=== PATIENT | male | born 1955 | race African-American/Black ===

== ENCOUNTER 2016-11-29 23:25 | Inpatient (IN) ==
[2016-11-29] MEDS ORDERED: PANTOPRAZOLE 40 MG VIAL IV ONE ×2 (23:44→23:49)
[2016-11-29] MEDS ORDERED: LACTATED RINGERS 1,000 ML IV ONE (23:44)
[2016-11-29 23:54] LABS: Basophils % 0.1 % (0.0-0.8); Eosinophils % 0.4 % (0.00-10.9); Hematocrit 30.6 VOL% (42.0-52.0); Hemoglobin 9.6 GM/DL (14.0-18.0); Immature Granulocytes % 0.7 %; Immature Granulocytes Absolute 0.05 #; Lymphocytes # 1.6 10*3/uL (1.4-4.0); Lymphocytes % 21.2 % (21.2-54.2); Mean Corpuscular HGB Conc 31.4 GM/DL (32-36); Mean Corpuscular Hemoglobin 28 PG (27-34); Mean Corpuscular Volume 90.3 FL (87-102); Mean Platelet Volume 10.9 FL (9.6-12.0); Monocytes # 0.6 10*3/uL (0.11-0.8); Monocytes % 7.9 % (1.7-12.7); Neutrophils # 5.2 10*3/uL (1.4-7.4); Neutrophils % 69.7 % (38.7-73.9); Platelet Count 194 T/CUMM (130-400); Red Blood Count 3.39 MC/CUMM (3.8-5.5); Red Cell Distribution Width 17.4 % (9.3-17.3); White Blood Count 7.5 T/CUMM (4-12)
[2016-11-30 00:04] LABS: INR 1.1; PT Patient Result 11.8 SECS; Partial Thromboplastin Time 22.2 SECS (0-40)
[2016-11-30 00:07] LABS: Calcium 8.4 MG/DL (8.5-10.1); Magnesium 1.8 MG/DL (1.8-2.4); Osmolality,Calculated 290.7 MOS/KG (273-304); Potassium 4.4 MMOL/L (3.5-5.1)
[2016-11-30] MEDS ORDERED: LACTATED RINGERS 1,000 ML IV ONE (00:46)
--- NOTE | 2016-11-30 00:49 | Emergency Department Note ---
Cadence Cruz Hilary, am scribing for, and in the presence of, Dakota Wall MD 23:48 . Duke Cruz Hans, MD, personally performed the services described in this documentation, ascribed by Es Vila in my presence, and it is both accurate and complete . Arrival - Arrival Chief Complaint: Nausea/Vomiting/Diarrhea Stated Complaint: n/v ED Nursing Triage Note: Patient to room via ems with c/o n/v and black tarry stool. Patient states that he has vomited once and had one black tarry stool. Mode of Arrival: Stretcher Limitations: No Limitations Source: Patient, RN Notes Reviewed Time Seen by Provider: 11/29/16 23:38 - History of Present Illness HPI Narrative: Pt is a 61 year old black male brought into the ED via EMS for c/o nausea and vomiting with black tarry stool. Pt confirms black tarry stool, nausea and vomiting but denies abdominal pain. Pt has a PMHx of Oral CA, polyps removed, and colonoscopy. No other complaints or problems stated in the ED. Allergies/Adverse Reactions: Allergies Allergy/AdvReac Type Severity Reaction Status Date / Time No Known Allergies Allergy Verified 11/29/16 23:35 Home Medications: Home Medications Medication Instructions Recorded Confirmed Type Albuterol Inhaler [Proventil 2 puff INH Q6H PRN 08/10/16 08/10/16 History Inhaler] HYDROcodone/ACETAMIN 7.5-325 1 tablet PO Q4H PRN #45 tablet 08/17/16 Rx [[place] 7.5-325] Review of System - Review of System 12 point system: reviewed and no additional remarkable complaints except as stated - Review of System Constitutional: Absent: fever Gastrointestinal: Present: nausea, vomiting, melena. Absent: abdominal pain Medical,Surgical,& Family Hx - Medical History Cardio: No history of: Congenital Heart Disease, Hypertension Neurology: No history of: Seizures HEENT: History of: Dental Problems (NO TEETH), Oral Cancer Respiratory: History of: Asthma, Respiratory Problems (flu vac- yes; pneu vac- yes) Gastrointestinal: History of: Polyps (removed), GI Problems (occasional constipation) Musculoskeletal: History of: Back/Neck Problems Other: History of: Cancer (ORAL) - Surgical History HEENT Surgeries: Surgical HX of: Thyroid Surgery (?) Abdominal Surgeries: Surgical HX of: Colonoscopy Orthopedic Surgeries: Surgical HX of;: Implanted Devices (12 cervical screws), Spinal Surgery (C2-C7) - Social History Smoking Status: Smoker, status unknown Frequency of Alcohol Use: None Type of Drug Use: None Exam Vital Signs: Vital Signs Temperature 96.7 F L 11/29/16 23:25 Pulse Rate 82 11/29/16 23:58 Respiratory Rate 16 11/29/16 23:58 Blood Pressure 83/62 11/29/16 23:25 O2 Sat by Pulse Oximetry 100 11/29/16 23:58 - General General appearance: alert, in no apparent distress - Head Head exam: Present: atraumatic, normocephalic - Eye Eye exam: Present: normal appearance, PERRL, EOMI - ENT ENT exam: Present: mucous membranes moist, TM's normal bilaterally. Absent: mucous membranes dry - Neck Neck exam: Present: full ROM, trachea midline. Absent: tenderness (Radiation dermatitis on his neck and chin) - Chest Chest inspection: Present: symmetric chest wall rise. Absent: tenderness - Respiratory Respiratory exam: Present: normal lung sounds bilaterally. Absent: respiratory distress - Cardiovascular Cardiovascular exam: Present: regular rate, normal rhythm, normal heart sounds. Absent: murmur, rubs, gallop - Abdominal Exam Abdominal exam: Present: soft, hypoactive bowel sounds (blood in gastrostomy tube ). Absent: distention, tenderness - Extremities Exam Extremities exam: Present: full ROM. Absent: tenderness - Back Exam Back exam: Present: full ROM. Absent: tenderness - Neurological Exam Neurological exam: Present: alert, oriented X3, CN II-XII intact. Absent: motor sensory deficit - Psychiatric Psychiatric exam: Present: normal affect, normal mood - Skin Skin exam: Present: warm, dry, intact, normal color. Absent: rash Course Course Narrative: This patient was evaluated with lab work and was found to have a hemoglobin of 9.6. His kidney function was normal. We did do a type and screen as well. His coags were normal. He was given 80 mg of Protonix for GI bleed and I discussed his care with the hospitalist who agreed to admit him for treatment of his GI bleed and further workup. Results - Labs CBC & BMP: 11/29/16 23:38 11/29/16 23:38 Lab Results: I have reviewed the patients labs Labs: Laboratory Tests 11/29/16 23:38 WBC 7.5 RBC 3.39 L Hgb 9.6 L Hct 30.6 L MCHC 31.4 L RDW 17.4 H Laboratory Tests 11/29/16 23:38 Sodium 138 Potassium 4.4 BUN 48 H BUN/Creatinine Ratio 60.00 H Glucose 145 H Calcium 8.4 L Disposition Clinical Impression: GI bleed Case discussed with: patient Disposition: Still a Patient Condition: Guarded Time of Disposition: 00:49
--- NOTE | 2016-11-30 01:06 | Hospitalist History & Physical ---
Assessment and Plan (1) Nausea & vomiting Status: Acute Assessment and plan: No clear what caused the nausea and vomiting but definitely patient with a PEG tube irritation of the stomach is a possibility. Does have coffee grounds and melena there is likely peptic acid diatheses. Patient is already started on proton pump inhibitor. There is no ongoing bleeding therefore preventative measures with octreotide are not indicated, patient will have Zofran 4 mg IV every 4 hours as needed for antiemetic purposes Current Visit: Yes (2) Dyspnea Status: Acute Assessment and plan: Not really certain as to the cause of the shortness of air however will check EKG and chest x-ray. These have been ordered. Current Visit: Yes (3) GI bleed Status: Acute Assessment and plan: Appears patient is bleeding above the ligament of Treitz given the presence of melena and coffee-ground. This is PEG tube irritation or peptic diathesis is not clear. Check H&H every 12 hours. Get consultation with gastroenterology. Next H&H to be drawn later this morning at 4:00 a.m. if hematocrit drops by 3. patient is to be transfused packed RBC at least 2 units. Current Visit: Yes (4) Oral-mouth cancer Status: Acute Assessment and plan: This is in the will the patient's nutrition and obviously he is below and his nutritional status is underweight. Put him at moderate on nutrition. Dietary consultation to look into his caloric requirement Current Visit: No (5) Hypotension Status: Acute Assessment and plan: This likely is related to his bleeding. Patient will be admitted to the intensive care unit and his blood pressure closely. If does not get in a better will give the colloid transfusion of the blood and resort to use of pressors Current Visit: Yes History of Present Illness Chief complaint: Hypotension/Nausea vomiting/melena History of present illness: Mr. Haley is a 61 year old male brought into the ED via EMS for c/o nausea and vomiting with black tarry stool. Pt confirms black tarry stool, nausea and vomiting but denies abdominal pain. Pt has a PMHx of Oral CA, polyps removed, and colonoscopy. No other complaints or problems during my interview. The gentleman looks rather tired and dry. He has a PEG tube that does have some coffee grounds. Is under the hospital quite hypotensive blood pressure 83/62 recent admissions to the hospital with blood pressure in the 120s mm of mercury systolic. Denies chills or fever no hematochezia. He does acknowledge some shortness of air. Home Medications Medication Instructions Recorded Confirmed Type Albuterol Inhaler [Proventil 2 puff INH Q6H PRN 08/10/16 08/10/16 History Inhaler] HYDROcodone/ACETAMIN 7.5-325 1 tablet PO Q4H PRN #45 tablet 08/17/16 Rx [[place] 7.5-325] Allergies Allergy/AdvReac Type Severity Reaction Status Date / Time No Known Allergies Allergy Verified 11/29/16 23:35 Medical,Surgical,& Family Hx - Medical History Cardio: No history of: Congenital Heart Disease, Hypertension Neurology: No history of: Seizures HEENT: History of: Dental Problems (NO TEETH), Oral Cancer Respiratory: History of: Asthma, Respiratory Problems (flu vac- yes; pneu vac- yes) Gastrointestinal: History of: Polyps (removed), GI Problems (occasional constipation) Musculoskeletal: History of: Back/Neck Problems Other: History of: Cancer (ORAL) - Surgical History HEENT Surgeries: Surgical HX of: Thyroid Surgery (?) Abdominal Surgeries: Surgical HX of: Colonoscopy Orthopedic Surgeries: Surgical HX of;: Implanted Devices (12 cervical screws), Spinal Surgery (C2-C7) - Social History Smoking Status: Smoker, status unknown Frequency of Alcohol Use: None Type of Drug Use: None Review of systems: A 12 system assessment was done. What stands out with a chief complaint history of presenting illness and past medical history. Possible this gentleman is quite anemic but probably dehydrated. I will repeat H&H in the coming 4 hours on the hematocrit drops by about 3. she needs to be transfused blood. Exam - Constitutional Vitals: Period Temp Pulse Resp BP Sys/Baugh Pulse Ox Last 24 Hr 96.7 F-96.7 F 82-84 11-16 81-83/57-62 100-100 General appearance: under weight - Head Head exam: Present: normocephalic, atraumatic - Eye Eye exam: Present: EOMI Pupils: Present: SHUKRI - ENT ENT exam: Present: other (Patient has had oral surgery. He has dysarthria with some tissue taken from the back of the throat. Also had skin changes secondary to radiation.) - Neck Neck exam: Present: other (History of oropharyngeal surgery and radiation skin is rather tight) - Respiratory Respiratory exam: Present: clear to auscultation bilaterally - Cardiovascular Cardiovascular exam: Present: regular rate and rhythm - GI/Abdominal GI/Abdominal exam: Present: normal bowel sounds, soft, other (Presence of a PEG tube. Abdomen is nontender no guarding) - Neurological Exam Neurological exam: Present: alert, oriented X3, CN II-XII intact, other (Looks tired) - Psychiatric Psychiatric exam: Present: normal affect, normal mood - Skin Skin exam: Present: warm, dry, other (Skin changes around the neck and mouth from radiation and prior surgery) Results - Labs CBC & BMP: 11/29/16 23:38 11/29/16 23:38 Lab Results: I have reviewed the past 24 hour labs (Noted anemia noted hyperglycemia.)
[2016-11-30] MEDS ORDERED: ONDANSETRON 4 MG/2 ML VIAL IV PRN (01:15)
--- NOTE | 2016-11-30 02:33 | EKG Report ---
Stationary ECG Study [facility] Test Date: 11/30/2016 2:32:51 AM Pat Name: MARIBETH MACK Department: Room: 109 Gender: M Employee Relations Manager: : 1955 Requested by: Sony Escobar Order Number: [id number] Reading MD: RENETTA COLES Intervals [place] Rate: 84 P: 84 CA: 139 QRS: -79 QRSD: 78 T: 77 QT: 340 QTc: 382 Interpretive Statements SINUS RHYTHM CANNOT RULE OUT INFERIOR MYOCARDIAL INFARCTION, OF INDETERMINATE AGE Electronically Signed On 12-01-16 16:38:21 CDT by RENETTA COLES [email or web address]
[2016-11-30] MEDS ORDERED: AMINO ACIDS/DEXT/LYTES 4.25-5% 2,000 ML IV SCH (03:00)
[2016-11-30 05:17] LABS: Basophils % 0.1 % (0.0-0.8); Eosinophils % 0.3 % (0.00-10.9); Hematocrit 25.1 VOL% (42.0-52.0); Hemoglobin 8.1 GM/DL (14.0-18.0); Immature Granulocytes % 0.8 %; Immature Granulocytes Absolute 0.06 #; Lymphocytes # 1.2 10*3/uL (1.4-4.0); Lymphocytes % 15.2 % (21.2-54.2); Mean Corpuscular HGB Conc 32.3 GM/DL (32-36); Mean Corpuscular Hemoglobin 28 PG (27-34); Mean Corpuscular Volume 88.1 FL (87-102); Monocytes # 0.6 10*3/uL (0.11-0.8); Monocytes % 8.1 % (1.7-12.7); NRBC # 0.13 10*3/uL; Neutrophils % 75.5 % (38.7-73.9); Platelet Count 151 T/CUMM (130-400); Red Blood Count 2.85 MC/CUMM (3.8-5.5); Red Cell Distribution Width 17.2 % (9.3-17.3); White Blood Count 7.9 T/CUMM (4-12)
[2016-11-30] MEDS ORDERED: SODIUM CHLORIDE 0.9% 250 ML IV PRN (05:42)
--- NOTE | 2016-11-30 06:00 | XRay Report ---
XR chest 1V portable Indication: Shortness of breath Comparison: Chest x-ray 08/10/2016. Technique: Portable AP chest was performed. Findings: The heart size appears within normal limits. Atherosclerotic calcifications of the aortic knob are present. Pulmonary vasculature demonstrates no specific abnormality. Hilar structures demonstrate fairly symmetric appearance. The lungs appear clear. Bones and soft tissues demonstrate sclerotic lesion underlying the articular surface of the right humeral head. This is partially imaged. No acute osseous or soft tissue findings are suggested. Impression: 1. No active process is demonstrated within the chest. 2. Sclerotic lesion of the right humeral head is partially imaged. 11/30/2016 5:56 AM PROCEDURE INTERPRETED AT [facility] [place] DEPARTMENT OF RADIOLOGY Final Report Signed by: Dr. Reynaldo Davis
--- NOTE | 2016-11-30 09:56 | Gastrointestinal Consult Note ---
<Lashay Montes - Last Filed: 11/30/16 09:53> Assessment and Plan (1) GI bleed Status: Acute Assessment and plan: 11/30-Onset of melena, coffee ground emesis and reports of coffee grounds in PEG tube. No history of GI bleeding in past. Hgb 8.1, being transfused 2 units PRBC at present. BUN/Cr ratio 60. Continue to monitor serial HH. Plan and addendum to follow by Dr Hair. Current Visit: Yes History of Present Illness Chief complaint: GI bleed History of present illness: Mr. Haley is a 61 year old male who presented to the hospital with onset of melena and coffee ground emesis. Pt is a fair historian therefore information is obtained from chart review as well as patient interview. Pt has a history of oral cancer that was diagnosed originally in February 2016 when he presented to Dr Lee following dental exam and findings of oral mass. Biopsy returned as squamous cell carcinoma and he was referred to [facility] at that time. He has a history of heavy alcohol and tobacco use which he states he no longer does either of these. He underwent surgical resection of this In June at [facility]. He was then referred to Dr Wall for gastrostomy tube placement in July and returned again Aug for exploratory laparotomy with repair of gastrostomy tube. Pt has actually had weight gain since then up to 7-8 pounds. States he solely uses his PEG tube and can only swallow water at this point. He states that he noticed on yesterday he had onset of dark tarry stools. States he also became nauseated and vomited what he states was coffee ground appearing emesis. Denies any abdominal pain, fever, chills or night sweats. States he has had no hematochezia. States he has had endoscopy in the past but this was in [place] and cannot recall when or the findings. On admission he was noted to be hypotensive with some SOB. Hemoglobin was 9.6 on admission and trended down at 8.1 today now currently receiving 2 units of PRBC. Pt states that he has had no further melena or N/V since admission. BUN/Cr ratio 60. BP is improving at this time. Home Medications Medication Instructions Recorded Confirmed Type Albuterol Inhaler [Proventil 2 puff INH Q6H PRN 08/10/16 11/30/16 History Inhaler] HYDROcodone/ACETAMIN 7.5-325 1 tablet PO Q6H PRN 11/30/16 11/30/16 History [[place] 7.5-325] Ondansetron [Zuplenz] 8 mg PO Q6HR PRN 11/30/16 11/30/16 History Promethazine Tab [Phenergan Tab] 25 mg PO Q4H 11/30/16 11/30/16 History Allergies Allergy/AdvReac Type Severity Reaction Status Date / Time No Known Allergies Allergy Verified 11/29/16 23:35 Medical,Surgical,& Family Hx - Medical History Cardio: No history of: Congenital Heart Disease, Hypertension Neurology: No history of: Seizures HEENT: History of: Dental Problems (NO TEETH), Oral Cancer Respiratory: History of: Asthma, Respiratory Problems (flu vac- yes; pneu vac- yes) Gastrointestinal: History of: Polyps (removed), GI Problems (occasional constipation) Musculoskeletal: History of: Back/Neck Problems Other: History of: Cancer (ORAL) - Surgical History HEENT Surgeries: Surgical HX of: Thyroid Surgery (?) Abdominal Surgeries: Surgical HX of: Colonoscopy Orthopedic Surgeries: Surgical HX of;: Implanted Devices (12 cervical screws), Spinal Surgery (C2-C7) - Social History Smoking Status: Smoker, status unknown Frequency of Alcohol Use: None Type of Drug Use: None 12 point system: reviewed and no additional remarkable complaints except as stated - Constitutional Constitutional: Present: as per HPI - EENT Eyes: Present: as per HPI Ears: Present: as per HPI Nose, mouth and throat: Present: dysphagia, neck mass - Cardiovascular Cardiovascular: Present: as per HPI - Respiratory Respiratory: Present: as per HPI - Gastrointestinal Gastrointestinal: Present: as per HPI, coffee ground emesis, melena, nausea, vomiting - Genitourinary Genitourinary: Present: as per HPI - Musculoskeletal Musculoskeletal: Present: as per HPI - Neurological Neurological: Present: as per HPI - Psychiatric Psychiatric: Present: as per HPI - Endocrine Endocrine: Present: as per HPI - Hematologic/Lymphatic Hematologic/Lymphatic: Present: as per HPI Exam - Constitutional Vitals: Period Temp Pulse Resp BP Sys/Baugh Pulse Ox Last 24 Hr 96.7 F-99.6 F 61-84 11-22 74-128/52-74 98-100 General appearance: normal weight, no acute distress - Head Head exam: Present: normal inspection, normocephalic - Eye Eye exam: Present: other (lids and conjunctiva unremarkable). Absent: scleral icterus - ENT ENT exam: Present: normal exam, normal oropharynx - Neck Neck exam: Present: normal inspection - Respiratory Respiratory exam: Present: clear to auscultation bilaterally. Absent: rales, rhonchi, wheezes - Cardiovascular Cardiovascular exam: Present: regular rate and rhythm. Absent: systolic murmur - GI/Abdominal GI/Abdominal exam: Present: normal bowel sounds, soft. Absent: ascites, distended, mass, organomegaly, tenderness - Extremities Exam Extremities exam: Present: normal inspection, full ROM - Back Exam Back exam: Present: normal inspection - Neurological Exam Neurological exam: Present: alert, oriented X3 - Psychiatric Psychiatric exam: Present: normal affect, normal mood - Skin Skin exam: Present: normal color, warm, dry Results - Labs CBC & BMP: 11/30/16 04:20 11/29/16 23:38 Lab Results: I have reviewed the past 24 hour labs <Aj Hair - Last Filed: 11/30/16 13:46> History of Present Illness History of present illness: Mr. Haley is a 61 year old male Exam - Constitutional Vitals: Period Temp Pulse Resp BP Sys/Baugh Pulse Ox Last 24 Hr 96.7 F-99.6 F 61-84 11-24 74-128/52-74 98-100 Results - Labs CBC & BMP: 11/30/16 12:24 11/29/16 23:38
[2016-11-30] MEDS: PANTOPRAZOLE 40 MG VIAL IV SCH ×2 (12:27→21:28)
[2016-11-30 12:29] LABS: Hematocrit 31.7 VOL% (42.0-52.0); Hemoglobin 10.8 GM/DL (14.0-18.0)
[2016-11-30] MEDS ORDERED: LIDOCAINE 2% 5 ML VIAL ONE (13:45)
[2016-11-30] MEDS ORDERED: PROPOFOL 200 MG/20 ML VIAL IV ONE (13:45)
[2016-11-30] MEDS ORDERED: ETOMIDATE 20 MG/10 ML VIAL IV ONE (13:45)
--- NOTE | 2016-11-30 13:47 | History and Physical Update ---
History and Physical Update - History and Physical H&P was reviewed, the patient examined and there: are no changes in the patients condition since last H&P was completed. - Physical Exam Mental Status: alert and oriented Heart: regular rate and rhythm Lung: clear to auscultation Abdomen: within normal limits Vitals: within normal limits
--- NOTE | 2016-11-30 14:07 | Operative Note ---
Date of procedure: 11/30/16 Pre-op diagnosis: Upper GI bleed Post-op diagnosis: other (Nereyda-Rivas tear with visible vessel) Procedure: Procedure: Esophagogastroduodenoscopy with epinephrine injection and endoscopic clipping of Nreeyda Rivas tear visible vessel Brief clinical abstract: Patient is a 61-year-old male with history of oral cancer treated with radiation. He is admitted after onset yesterday with recurrent coffee-ground emesis and black stools. Patient was hypotensive on presentation but hemodynamics have normalized with IV fluid resuscitation. Indication for procedure: Hematemesis Endoscopic findings:[After informed consent was obtained, the patient was placed in the left lateral decubitus position. The gastroscope was inserted in the upper esophagus under direct vision with no resistance encountered. Esophageal mucosa appeared normal down to the squamocolumnar junction. There was a mildly obstructive ringlike stricture at this level consistent with reflux etiology. Just distal to the squamocolumnar junction there was a moderate sized hiatal hernia 3-4 cm in length. A deep mucosal tear was noted oriented longitudinally in the proximal portion of the hiatal hernia. Along the distal portion of the tear was a prominent visible vessel with some oozing noted. Sclerotherapy needle was used and a total of 6 cc of 1: 10,000 concentration epinephrine was injected in around the vessel with 4 separate injections. Then 2 instinct endoscopic clips were applied to the base of the vessel which appeared to be in good position afterwards. The endoscope was advanced in the stomach which was carefully examined including retroflexed view of the cardia and fundus with no other abnormality seen. There was a small amount of blood in the stomach. The pyloric channel, duodenal bulb, second and third portion of the duodenum were normal. The endoscope was withdrawn and patient appeared to tolerate the procedure well. Impression: #1 Nereyda-Rivas tear with visible vessel-status post endoscopic therapy as above #2 moderate sized hiatal hernia Recommendations: Observe in ICU another 24 hours at least. Continue PPI therapy and serial hemoglobins with blood product support as needed. F F Anesthesia: MAC Surgeon / Physician: Aj Hair Estimated blood loss: minimal Specimens: none sent Condition: stable Disposition: post procedure unit Results - Labs CBC & BMP: 11/30/16 12:24 11/29/16 23:38 Discharge Plan - Discharge Medications No Action Albuterol Inhaler [Proventil Inhaler] 2 puff INH Q6H PRN PRN Reason: Shortness Of Breath/Wheezing HYDROcodone/ACETAMIN 7.5-325 [[place] 7.5-325] 1 tablet PO Q6H PRN PRN Reason: Pain Moderate (4-7) Ondansetron [Zuplenz] 8 mg PO Q6HR PRN PRN Reason: Nausea/Vomiting Promethazine Tab [Phenergan Tab] 25 mg PO Q4H - Follow Up or Referral - Forms/Instructions
[2016-11-30] MEDS ORDERED: EPINEPHrine 1 MG/ML VIAL ONE (14:14)
[2016-11-30] MEDS ORDERED: MIDAZOLAM 2 MG/2 ML VIAL ONE (14:18)
--- NOTE | 2016-11-30 14:20 | Anesthesia Post-Op ---
Anesthesia Post OP - Post Ansesthetic Evaluation Patient seen in post op: Yes Resp: within normal limits CV: within normal limits Mental: within normal limits Temp: within normal limits [id number]: within normal limits Nausea and Vomiting: within normal limits Pain: within normal limits
[2016-11-30 16:30] LABS: Hemoglobin 10.1 GM/DL (14.0-18.0)
--- NOTE | 2016-11-30 16:30 | Oncology Consult Note ---
Assessment and Plan (1) Oral-mouth cancer Status: Acute Assessment and plan: There is nothing to address at this time from an oncology standpoint. Hopefully the intervention today with EGD stop his bleeding. I will continue to check in on his case while he is in the hospital. Current Visit: No (2) GI bleed Status: Acute Current Visit: Yes History of Present Illness History of present illness: Mr. Haley is a 61 year old male with a diagnosis of locally advanced head neck cancer who underwent surgical resection at [facility] in June 2016 and then completed adjuvant chemotherapy with radiation here [place] in October 2016. I saw him earlier this month for his final dose of chemotherapy and have him scheduled to see me in January of this year for follow-up. He is now admitted with upper GI bleeding. EGD today revealed what looks like Nereyda-Rivas tears. Epinephrine was injected and clipping was done. Hopefully this will stop his bleeding. Home Medications Medication Instructions Recorded Confirmed Type Albuterol Inhaler [Proventil 2 puff INH Q6H PRN 08/10/16 11/30/16 History Inhaler] HYDROcodone/ACETAMIN 7.5-325 1 tablet PO Q6H PRN 11/30/16 11/30/16 History [[place] 7.5-325] Ondansetron [Zuplenz] 8 mg PO Q6HR PRN 11/30/16 11/30/16 History Promethazine Tab [Phenergan Tab] 25 mg PO Q4H 11/30/16 11/30/16 History Allergies Allergy/AdvReac Type Severity Reaction Status Date / Time No Known Allergies Allergy Verified 11/29/16 23:35 Medical,Surgical,& Family Hx - Medical History Cardio: No history of: Congenital Heart Disease, Hypertension Neurology: No history of: Seizures HEENT: History of: Dental Problems (NO TEETH), Oral Cancer Respiratory: History of: Asthma, Respiratory Problems (flu vac- yes; pneu vac- yes) Gastrointestinal: History of: Polyps (removed), GI Problems (occasional constipation) Musculoskeletal: History of: Back/Neck Problems Other: History of: Cancer (ORAL) - Surgical History HEENT Surgeries: Surgical HX of: Thyroid Surgery (?) Abdominal Surgeries: Surgical HX of: Colonoscopy Orthopedic Surgeries: Surgical HX of;: Implanted Devices (12 cervical screws), Spinal Surgery (C2-C7) - Social History Smoking Status: Smoker, status unknown Frequency of Alcohol Use: None Type of Drug Use: None 12 point system: reviewed and no additional remarkable complaints except as stated - Constitutional Constitutional: Present: fatigue - EENT Nose, mouth and throat: Present: dysphagia, sore throat - Gastrointestinal Gastrointestinal: Present: hematemesis, melena Exam - Constitutional Vitals: Period Temp Pulse Resp BP Sys/Baugh Pulse Ox Last 24 Hr 96.7 F-99.6 F 61-84 11-24 74-128/52-74 98-100 General appearance: normal weight, no acute distress - Eye Eye Exam: Present: EOMI Pupils: Present: PERRL - Neck Neck exam: Absent: lymphadenopathy, thyromegaly - Respiratory Respiratory exam: Present: CTAB. Absent: wheezes - Cardiovascular Cardiovascular exam: Present: RRR. Absent: JVD, systolic murmur - GI/Abdominal GI/Abdominal exam: Present: soft. Absent: ascites, distended, mass - Neurological Exam Neurological exam: Present: alert, oriented X3 - Psychiatric Psychiatric exam: Present: normal affect, normal mood - Skin Skin exam: Present: warm, dry Results - Labs CBC & BMP: 11/30/16 12:24 11/29/16 23:38 Lab Results: I have reviewed the past 24 hour labs
[2016-11-30] MEDS ORDERED: DEXTROSE 10% 1,000 ML IV PRN (17:00)
[2016-11-30] MEDS: FAT EMULSION 20% 250 ML IV SCH (17:27)
[2016-11-30] MEDS: TRACE ELEMENTS (5) 1 ML, MULTIVITAMIN INJ 10 ML in AMINO ACIDS/DEXT/LYTES 4.25-5% 2,000 ML IV SCH (17:27)
[2016-11-30 22:41] LABS: Hematocrit 28.8 VOL% (42.0-52.0); Hemoglobin 9.9 GM/DL (14.0-18.0)
[2016-12-01 04:37] LABS: Hematocrit 28.7 VOL% (42.0-52.0); Hemoglobin 9.6 GM/DL (14.0-18.0)
[2016-12-01 04:41] LABS: Basophils % 0.3 % (0.0-0.8); Eosinophils # 0.1 10*3/uL (0.0-0.87); Eosinophils % 1.8 % (0.00-10.9); Hematocrit 28.6 VOL% (42.0-52.0); Hemoglobin 9.7 GM/DL (14.0-18.0); Immature Granulocytes % 0.5 %; Immature Granulocytes Absolute 0.03 #; Lymphocytes # 1.2 10*3/uL (1.4-4.0); Lymphocytes % 19.1 % (21.2-54.2); Mean Corpuscular HGB Conc 33.9 GM/DL (32-36); Mean Corpuscular Hemoglobin 29 PG (27-34); Mean Corpuscular Volume 86.1 FL (87-102); Mean Platelet Volume 10.6 FL (9.6-12.0); Monocytes # 0.6 10*3/uL (0.11-0.8); Monocytes % 10.2 % (1.7-12.7); Neutrophils # 4.2 10*3/uL (1.4-7.4); Neutrophils % 68.1 % (38.7-73.9); Platelet Count 138 T/CUMM (130-400); Red Blood Count 3.32 MC/CUMM (3.8-5.5); Red Cell Distribution Width 17.2 % (9.3-17.3); White Blood Count 6.2 T/CUMM (4-12)
[2016-12-01 05:04] LABS: Magnesium 1.8 MG/DL (1.8-2.4); Phosphorous 3.8 MG/DL (2.5-4.9); Prealbumin 14.8 MG/DL (20-40)
[2016-12-01 05:08] LABS: Calcium 8.2 MG/DL (8.5-10.1); Magnesium 1.9 MG/DL (1.8-2.4); Osmolality,Calculated 280.4 MOS/KG (273-304); Potassium 3.9 MMOL/L (3.5-5.1)
--- NOTE | 2016-12-01 08:35 | Physician Query Form ---
CLICK EDIT DOCUMENT TO SELECT QUERY ANSWER --> OK --> SIGN Nani Davis RN, CCDS Certified Clinical Coroner Forensic Technician W) [phone] (f) [phone] [email or web address] PROVIDERS: Make your selection(s) from the choices in EACH section by typing an "x" and enter comments in the comment section. Please use your independent medical judgment in providing your response. This request does not imply that any particular answer is desired or expected. CLINICAL INDICATORS: (Providers should not edit this section) The medical record indicates that the patient was admitted with GI bleeding, anemia, on the the HH dropped to 8.1/25.1 and the patient was given 2 units of blood. Based on the above, could you clarify which of the following conditions you are evaluating, treating, and/or monitoring? ( ) Blood loss anemia ( ) acute ( ) chronic ( ) acute on chronic ( ) Acute blood loss anemia on baseline chronic anemia ( ) Acute blood loss anemia as a complication of a procedure ( ) Iron deficiency anemia not associated with blood loss ( ) Dilutional anemia due to IV fluids ( ) Anemia due to chemotherapy ( ) Anemia due to neoplastic disease ( ) Anemia due to chronic kidney disease ( ) Pernicious anemia ( ) Aplastic anemia ( ) Hemolytic anemia ( ) immune ( ) non-immune - please specify cause: ( ) Anemia due to other condition, please specify: ( ) Clinically unable to determine COMMENTS: PLEASE ALSO DOCUMENT RESPONSE IN PROGRESS NOTES AND/OR DISCHARGE SUMMARY Use of terms such as suspected, likely, or probable (associated with a specific diagnosis that is being evaluated, monitored, or treated as if it exists) are acceptable and can be restated in the discharge summary if not ruled out. MTDD
--- NOTE | 2016-12-01 08:37 | Physician Query Form ---
CLICK EDIT DOCUMENT TO SELECT QUERY ANSWER --> OK --> SIGN Nani Davis RN, CCDS Certified Clinical Business Architect W) [phone] (f) [phone] [email or web address] PROVIDERS: Make your selection(s) from the choices in EACH section by typing an "x" and enter comments in the comment section. Please use your independent medical judgment in providing your response. This request does not imply that any particular answer is desired or expected. CLINICAL INDICATORS: (Providers should not edit this section) The medical record indicates that the patient was admitted with GI bleeding, BP in the ER 83/62, (2) LR 1,000 boluses, given 2 units of blood, and the patient "endoscopic clipping of Nereyda Rivas tear visible vessel". Please clarify which, if any, of the following is the etiology of the above symptoms and treatment rendered: ( ) Hypovolemic shock ( ) Septic shock ( ) Cardiogenic shock ( x) Hemorrhagic shock ( ) Traumatic shock ( ) Shock due to, please specify etiology: ( ) Shock, unknown etiology ( ) Drug induced, please specify substance: ( ) Iatrogenic Hypotension ( ) Orthostatic Hypotension ( ) Hypotension, unknown etiology ( ) Other, please specify: ( ) Clinically unable to determine COMMENTS: PLEASE ALSO DOCUMENT RESPONSE IN PROGRESS NOTES AND/OR DISCHARGE SUMMARY Use of terms such as suspected, likely, or probable (associated with a specific diagnosis that is being evaluated, monitored, or treated as if it exists) are acceptable and can be restated in the discharge summary if not ruled out. MTDD
[2016-12-01] MEDS: PANTOPRAZOLE 40 MG VIAL IV SCH ×2 (09:17→20:34)
--- NOTE | 2016-12-01 09:55 | Gastrointestinal Progress Note ---
Assessment and Plan (1) GI bleed Status: Acute Assessment and plan: 12/01-No reports of melena, nausea or vomiting. EGD findings noted. Hgb stable at 9.6. Plan and addendum to follow by Dr Hair. 11/30-Onset of melena, coffee ground emesis and reports of coffee grounds in PEG tube. No history of GI bleeding in past. Hgb 8.1, being transfused 2 units PRBC at present. BUN/Cr ratio 60. Continue to monitor serial HH. Plan and addendum to follow by Dr Hair. Current Visit: Yes Gastroenterology - PN: Subj Interval history: CC: Upper GI bleed Pt is seen awake and alert sitting up in bed. States that he is feeling a little better today. Denies any abdominal pain, nausea or vomiting. EGD findings noted with Nereyda-Rivas tear with visible vessel with treatment with epi and clips x 2. Hemoglobin is holding at 9.6 at this time. Has only required 2 units of PRBC since admission. BP remains with systolic in 90s. Abdomen is soft, nontender. ROS: Denies SOB or chest pain Exam (Progress Note) - Constitutional Vitals: Period Temp Pulse Resp BP Sys/Baugh Pulse Ox Last 24 Hr 97.4 F-100.3 F 61-93 14-37 83-161/55-85 95-100 General appearance: normal weight, no acute distress - Head Head exam: Present: normal inspection, normocephalic - Eye Eye exam: Present: other (lids and conjunctiva unremarkable). Absent: scleral icterus - ENT ENT exam: Present: normal exam, normal oropharynx - Neck Neck exam: Present: normal inspection - Respiratory Respiratory exam: Present: clear to auscultation bilaterally. Absent: rales, rhonchi, wheezes - Cardiovascular Cardiovascular exam: Present: regular rate and rhythm. Absent: diastolic murmur , JVD, systolic murmur - GI/Abdominal GI/Abdominal exam: Present: normal bowel sounds, soft. Absent: ascites, distended, mass, organomegaly, tenderness - Extremities Exam Extremities exam: Present: normal inspection, full ROM - Back Exam Back exam: Present: normal inspection - Neurological Exam Neurological exam: Present: alert, oriented X3 - Psychiatric Psychiatric exam: Present: normal affect, normal mood - Skin Skin exam: Present: normal color, warm, dry Results - Labs CBC & BMP: 12/01/16 03:58 12/01/16 03:58 Lab Results: I have reviewed the past 24 hour labs
[2016-12-01] MEDS: HYDROcod/ACETAMIN 7.5-325 MG/15 ML UDCUP PO PRN ×2 (10:10→20:29)
[2016-12-01 10:14] LABS: Hematocrit 31.8 VOL% (42.0-52.0); Hemoglobin 10.5 GM/DL (14.0-18.0)
--- NOTE | 2016-12-01 12:47 | Hospitalist Progress Note ---
Assessment and Plan (1) GI bleed Status: Acute Assessment and plan: The patient had acute GI blood loss anemia due to Nereyda-Rivas tear. This was addressed with clips by Dr. Hair. The patient is stable today and ready for transfer to the floor. Current Visit: Yes (2) Oral-mouth cancer Status: Acute Assessment and plan: The patient has received full radiation and chemotherapy doses. Dr. Ring is following now. Current Visit: No Hospitalist: Subjective Interval history: The patient received 2 units packed red blood cell transfusion yesterday and had esophagogastroduodenoscopy with Dr. Hair. I coordinate care with Dr. Hair and observed him place to clips on visible vessels at the esophageal junction that were exposed by Nereyda-Rivas tear. The patient has stable hemoglobin this morning and no further apparent bleeding. The patient is not complaining of shortness of breath or abdominal pain. Exam - Constitutional Vitals: Period Temp Pulse Resp BP Sys/Baugh Pulse Ox Last 24 Hr 97.1 F-100.3 F 56-93 14-37 83-161/51-85 95-100 Exam: Constitutional System: No distress. No tremulousness. Head: Normocephalic, atraumatic. Ears, Nose and Throat System: Postoperative appearance of previous head and neck resection Eyes System: Pupils equal, round, and reactive. Extraocular muscles intact. Neck: Supple, without adenopathy, No jugular venous distention. No thyromegaly , neck mass, or prior surgery apparent. Respiratory System: Chest clear to auscultation. Cardiovascular System: Heart with regular rate and rhythm. No murmur. GI System: Abdomen soft, nontender. Normo active bowel sounds present. Musculoskeletal System: limbs with no pedal edema. Full distal pulses. Results - Labs CBC & BMP: 12/01/16 10:06 12/01/16 03:58 Lab Results: I have reviewed the past 24 hour labs
[2016-12-01] MEDS: FAT EMULSION 20% 250 ML IV SCH (14:35)
[2016-12-01] MEDS ORDERED: MORPHINE 2 MG/1 ML SYRINGE IV PRN (15:06)
[2016-12-01] MEDS ORDERED: ONDANSETRON 4 MG TABLET PO PRN (15:06)
[2016-12-01] MEDS ORDERED: ALBUTEROL 2.5 MG/3 ML NEB RESP TX PRN (15:08)
[2016-12-01] MEDS: TRACE ELEMENTS (5) 1 ML, MULTIVITAMIN INJ 10 ML in AMINO ACIDS/DEXT/LYTES 4.25-5% 2,000 ML IV SCH (18:47)
[2016-12-02 05:19] LABS: Basophils % 0.7 % (0.0-0.8); Eosinophils # 0.2 10*3/uL (0.0-0.87); Eosinophils % 4.8 % (0.00-10.9); Hematocrit 29.8 VOL% (42.0-52.0); Hemoglobin 9.9 GM/DL (14.0-18.0); Immature Granulocytes % 0.4 %; Immature Granulocytes Absolute 0.02 #; Lymphocytes % 22.6 % (21.2-54.2); Mean Corpuscular HGB Conc 33.2 GM/DL (32-36); Mean Corpuscular Hemoglobin 28 PG (27-34); Mean Corpuscular Volume 85.6 FL (87-102); Mean Platelet Volume 11.1 FL (9.6-12.0); Monocytes # 0.6 10*3/uL (0.11-0.8); Monocytes % 12.3 % (1.7-12.7); Neutrophils # 2.7 10*3/uL (1.4-7.4); Neutrophils % 59.2 % (38.7-73.9); Platelet Count 137 T/CUMM (130-400); Red Blood Count 3.48 MC/CUMM (3.8-5.5); Red Cell Distribution Width 17.1 % (9.3-17.3); White Blood Count 4.6 T/CUMM (4-12)
[2016-12-02 06:03] LABS: Calcium 8.3 MG/DL (8.5-10.1); Osmolality,Calculated 277.5 MOS/KG (273-304)
--- NOTE | 2016-12-02 09:18 | Gastrointestinal Progress Note ---
Assessment and Plan (1) GI bleed Status: Acute Assessment and plan: 12/02-no reports of overt bleeding. Hemoglobin down slightly but stable at 9.9. Currently on TPN. Plan an addendum to followed by Dr. Hair. 12/01-No reports of melena, nausea or vomiting. EGD findings noted. Hgb stable at 9.6. Plan and addendum to follow by Dr Hair. 11/30-Onset of melena, coffee ground emesis and reports of coffee grounds in PEG tube. No history of GI bleeding in past. Hgb 8.1, being transfused 2 units PRBC at present. BUN/Cr ratio 60. Continue to monitor serial HH. Plan and addendum to follow by Dr Hair. Current Visit: Yes Gastroenterology - PN: Subj Interval history: CC: GI bleed Patient is seen awake and alert sitting up in bed. States he had an uneventful night. He denies any further nausea, vomiting or abdominal pain. Hemoglobin has remained stable at 9.9, down slightly from 10.5 on yesterday in absence of overt bleeding. Patient continues n.p.o. with TPN at this time. Abdomen is soft, nontender. Dr. Ng to see patient today and discussed timing of restarting tube feedings. ROS: Denies shortness of breath or chest pain Exam (Progress Note) - Constitutional Vitals: Period Temp Pulse Resp BP Sys/Baugh Pulse Ox Last 24 Hr 97.6 F-98.5 F 56-65 14-23 92-112/51-60 96-100 General appearance: no acute distress, under weight - Head Head exam: Present: normal inspection, normocephalic - Eye Eye exam: Present: other (Lids and conjunctive are unremarkable). Absent: scleral icterus - ENT ENT exam: Present: normal exam, normal oropharynx - Neck Neck exam: Present: normal inspection - Respiratory Respiratory exam: Present: clear to auscultation bilaterally. Absent: rales, rhonchi, wheezes - Cardiovascular Cardiovascular exam: Present: regular rate and rhythm. Absent: diastolic murmur , JVD, systolic murmur - GI/Abdominal GI/Abdominal exam: Present: normal bowel sounds, soft. Absent: ascites, distended, mass, organomegaly, tenderness - Extremities Exam Extremities exam: Present: normal inspection, full ROM - Back Exam Back exam: Present: normal inspection - Neurological Exam Neurological exam: Present: alert, oriented X3 - Psychiatric Psychiatric exam: Present: normal affect, normal mood - Skin Skin exam: Present: normal color, warm, dry Results - Labs CBC & BMP: 12/02/16 04:50 12/02/16 04:50 Lab Results: I have reviewed the past 24 hour labs
[2016-12-02] MEDS: HYDROcod/ACETAMIN 7.5-325 MG/15 ML UDCUP PO PRN ×2 (09:30→21:38)
[2016-12-02] MEDS: PANTOPRAZOLE 40 MG VIAL IV SCH ×2 (09:33→21:34)
--- NOTE | 2016-12-02 15:20 | Hospitalist Progress Note ---
Assessment and Plan (1) Oral-mouth cancer Status: Acute Current Visit: No (2) GI bleed Status: Acute Assessment and plan: Treated for svitlana-smith tear Monitor H/H Current Visit: Yes Hospitalist: Subjective Interval history: No acute events overnight. Patient denies any more bleeding episodes. He is currently on TPN. Will restart tube feeds. Monitor counts. Possible discharge tomorrow. Exam - Constitutional Vitals: Period Temp Pulse Resp BP Sys/Baugh Pulse Ox Last 24 Hr 98.1 F-98.9 F 57-62 16-20 99-112/52-60 96-97 General appearance: under weight - Head Head exam: Present: normocephalic, atraumatic - Eye Eye exam: Present: EOMI Pupils: Present: SHUKRI - ENT ENT exam: Present: normal exam - Neck Neck exam: Present: normal inspection - Respiratory Respiratory exam: Present: clear to auscultation bilaterally. Absent: rhonchi, wheezes - Cardiovascular Cardiovascular exam: Present: regular rate and rhythm - GI/Abdominal GI/Abdominal exam: Present: normal bowel sounds, soft. Absent: tenderness, rebound - Extremities Exam Extremities exam: Present: normal inspection - Back Exam Back exam: Present: normal inspection - Neurological Exam Neurological exam: Present: alert, oriented X3 - Psychiatric Psychiatric exam: Present: normal affect, normal mood - Skin Skin exam: Present: warm, intact Results - Labs CBC & BMP: 12/02/16 04:50 12/02/16 04:50
[2016-12-02] MEDS: FAT EMULSION 20% 250 ML IV SCH (16:06)
[2016-12-03 05:41] LABS: Hematocrit 28.9 VOL% (42.0-52.0); Hemoglobin 9.6 GM/DL (14.0-18.0)
[2016-12-03] MEDS: PANTOPRAZOLE 40 MG VIAL IV SCH (08:18)
--- NOTE | 2016-12-03 10:28 | Discharge Summary ---
Hospital Course - Hospital Course Hospital Course: Mr. Haley is a 61 year old male brought into the ED via EMS for c/o nausea and vomiting with black tarry stool. Pt confirms black tarry stool, nausea and vomiting but denies abdominal pain. Pt has a PMHx of Oral CA, polyps removed, and colonoscopy. He has a PEG tube that does have some coffee grounds. On presentation he was hypotensive. He was admitted under the hospitalist service to the intensive care unit. GI was consulted. He received two units PRBCs. He underwent an EGD, which showed a Nereyda-Rivas tear with a visible vessel. Epinephrine was injected and clips were placed. He has done well since, H/H has remained stable. He has tolerated tube feeds via his peg. He has now reached maximal benefit of inpatient stay and will be discharged to home. - Time spent with patient Time with patient DS: Less than 30 minutes Diagnosis - Discharge Diagnosis (1) Oral-mouth cancer Status: Chronic (2) GI bleed Status: Resolved Specialty Discharge - Follow Up or Referrals Discharge Plan - Discharge Data Disposition: Disch To Home/Self Care Condition at Discharge: Stable Discharge Diet: advance to your usual diet Activity: increase activity as tolerated Hygiene: no restrictions Weight Bearing at Discharge: weight bear as tolerated Contact your physician if you experience:: fever over 101, Shortness of breath, Bleeding - Discharge Medications New Lansoprazole 15 mg PO BID #60 capsule Albuterol Neb [Proventil Neb] 2.5 mg RESP TX RT Q6H PRN PRN Reason: Shortness Of Breath Continue HYDROcodone/ACETAMIN 7.5-325 [[place] 7.5-325] 1 tablet PO Q6H PRN PRN Reason: Pain Moderate (4-7) Promethazine Tab [Phenergan Tab] 25 mg PO Q4H Ondansetron HCl 8 mg PO Q6H PRN PRN Reason: Nausea Discontinued Albuterol Inhaler [Proventil Inhaler] 2 puff INH Q6H PRN PRN Reason: Shortness Of Breath/Wheezing - Follow Up or Referral - Forms/Instructions Instructions: Pirbuterol (By breathing), Gastrointestinal Bleeding (DC) Exam - Constitutional Vitals: Period Temp Pulse Resp BP Sys/Baugh Pulse Ox Last 24 Hr 97.7 F-98.6 F 58-90 16-20 96-111/50-64 96-98 General appearance: normal weight - Head Head exam: Present: normocephalic, atraumatic - Eye Eye exam: Present: EOMI Pupils: Present: SHUKRI - ENT ENT exam: Present: normal exam - Neck Neck exam: Present: normal inspection - Respiratory Respiratory exam: Present: clear to auscultation bilaterally. Absent: rhonchi, wheezes - Cardiovascular Cardiovascular exam: Present: regular rate and rhythm - GI/Abdominal GI/Abdominal exam: Present: normal bowel sounds, soft. Absent: tenderness, rebound - Extremities Exam Extremities exam: Present: normal inspection - Back Exam Back exam: Present: normal inspection - Neurological Exam Neurological exam: Present: alert, oriented X3 - Psychiatric Psychiatric exam: Present: normal affect, normal mood - Skin Skin exam: Present: warm, intact Discharge Results Procedures and tests throughout hospitalization: Pending Orders 12/05/16 04:00 Basic Metabolic Panel MOTH Magnesium MOTH Phosphorous MOTH Prealbumin MOTH Labs on day of discharge: Labs from last 24 hours 12/03/16 04:31 Hgb 9.6 L Hct 28.9 L DS: Provider Date of admission: 11/30/16 01:01 Primary care physician: . No PCP Attending physician on admission: Sony Escobar MD Consults: 11/30/16 01:20 Consult to Dietitian [CONS] Routine Reason for Dietitian: Diet Instruction Consult Comment: Patient on tube feedings/moderate malnutrition BMI 17 11/30/16 01:27 Consult to Physician [CONS] Routine Comment: On-call physician/GI bleed Consulting Provider: Aj Hair Consulting Provider Notified: Yes Consult to Specialist Group: Gastroenterology When should Consulting Provider be notified: In am Person Notified: LOWELL Date Notified: 11/30/16 Time Notified: 08:15 11/30/16 02:58 Consult to Dietitian [CONS] Routine Reason for Dietitian: Dietary Consult TPN/PPN-Initiate/Manage 11/30/16 08:25 Consult to Physician [CONS] Routine Comment: head/neck pt for f/u Consulting Provider: Chalino Ring Consulting Provider Notified: Yes Consult to Specialist Group: Oncology Person Notified: IRAIDA Date Notified: 11/30/16 Time Notified: 08:40 12/02/16 10:26 Consult to Dietitian [CONS] Routine Reason for Dietitian: TF-Initiate/Manage Discharging clinician: Alicia Ng MD
[2016-12-03] MEDS ORDERED: HEPARIN LOCK FLUSH 500 UNIT/5 ML SYRINGE IV ONE (11:11)
[2016-12-03] MEDS: HYDROcod/ACETAMIN 7.5-325 MG/15 ML UDCUP PO PRN (11:24)
[2016-12-03 11:55] VITALS: BP 100/58
--- NOTE | 2016-12-07 07:25 | Physician Query Form ---
CLICK EDIT DOCUMENT TO SELECT QUERY ANSWER --> OK --> SIGN Nani Davis RN, CCDS Certified Clinical Sales Development Specialist W) [phone] (f) [phone] [email or web address] PROVIDERS: Make your selection(s) from the choices in EACH section by typing an "x" and enter comments in the comment section. Please use your independent medical judgment in providing your response. This request does not imply that any particular answer is desired or expected. CLINICAL INDICATORS: (Providers should not edit this section) The medical record indicates that the patient was admitted with GI bleeding, anemia, on the the HH dropped to 8.1/25.1 and the patient was given 2 units of blood. Based on the above, could you clarify which of the following conditions you are evaluating, treating, and/or monitoring? ( ) Blood loss anemia ( ) acute ( ) chronic ( ) acute on chronic ( ) Acute blood loss anemia on baseline chronic anemia ( ) Acute blood loss anemia as a complication of a procedure ( ) Iron deficiency anemia not associated with blood loss ( ) Dilutional anemia due to IV fluids ( ) Anemia due to chemotherapy ( ) Anemia due to neoplastic disease ( ) Anemia due to chronic kidney disease ( ) Pernicious anemia ( ) Aplastic anemia ( ) Hemolytic anemia ( ) immune ( ) non-immune - please specify cause: ( ) Anemia due to other condition, please specify: ( ) Clinically unable to determine COMMENTS: PLEASE ALSO DOCUMENT RESPONSE IN PROGRESS NOTES AND/OR DISCHARGE SUMMARY Use of terms such as suspected, likely, or probable (associated with a specific diagnosis that is being evaluated, monitored, or treated as if it exists) are acceptable and can be restated in the discharge summary if not ruled out. MTDD
== END 2016-12-03 12:30 | disposition home or self-care (01) | DRG 242 ==
LOC: EDUNIT# → N.ED 23:25 → N.EDINP 11-30 01:01 → SUATTDRO 11-30 01:01 → N.ICU 11-30 01:41 → N.4E 12-01 14:42
PROVIDERS: ADMIT Internal Medicine Infectious Disease; ATTEND Internal Medicine

== ENCOUNTER 2020-08-29 10:19 | Inpatient (IN) ==
[2020-08-29] MEDS ORDERED: propofoL 200 MG/20 ML VIAL IV ONE (10:42)
[2020-08-29] MEDS ORDERED: ONDANSETRON 4 MG/2 ML VIAL IV PRN (13:37)
[2020-08-29] MEDS ORDERED: PROMETHAZINE 25 MG/1 ML VIAL IM PRN (13:37)
[2020-08-29] MEDS: PANTOPRAZOLE 40 MG TABLET PO SCH (15:11)
[2020-08-29] MEDS: LACTATED RINGERS 1,000 ML IV SCH ×2 (15:12→21:58)
[2020-08-29] MEDS ORDERED: ALBUTEROL 2.5 MG/3 ML NEB RESP TX PRN (19:00)
[2020-08-30] MEDS: HYDROmorphone 2 MG/1 ML VIAL IV PRN ×3 (00:03→14:28)
[2020-08-30] MEDS: LEVOTHYROXINE 50 MCG TABLET PO SCH (05:57)
[2020-08-30] MEDS: LACTATED RINGERS 1,000 ML IV SCH ×2 (05:59→20:09)
[2020-08-30] MEDS: ENOXAPARIN 40 MG/0.4 ML SYRINGE SUBCUT SCH (06:02)
[2020-08-30] MEDS: PANTOPRAZOLE 40 MG TABLET PO SCH (09:00)
[2020-08-31] MEDS: LACTATED RINGERS 1,000 ML IV SCH ×3 (03:38→19:42)
[2020-08-31] MEDS: LEVOTHYROXINE 50 MCG TABLET PO SCH (05:53)
[2020-08-31] MEDS: ENOXAPARIN 40 MG/0.4 ML SYRINGE SUBCUT SCH (05:53)
[2020-08-31] MEDS: PANTOPRAZOLE 40 MG TABLET PO SCH (09:19)
[2020-08-31] MEDS: HYDROmorphone 2 MG/1 ML VIAL IV PRN (23:13)
[2020-09-01] MEDS: LACTATED RINGERS 1,000 ML IV SCH (04:19)
[2020-09-01] MEDS: ENOXAPARIN 40 MG/0.4 ML SYRINGE SUBCUT SCH (05:44)
[2020-09-01] MEDS: LEVOTHYROXINE 50 MCG TABLET PO SCH (05:44)
[2020-09-01] MEDS: PANTOPRAZOLE 40 MG TABLET PO SCH (09:02)
[2020-09-01] MEDS: HYDROmorphone 2 MG/1 ML VIAL IV PRN ×2 (09:03→19:58)
[2020-09-02] MEDS: HYDROmorphone 2 MG/1 ML VIAL IV PRN (05:07)
[2020-09-02] MEDS: ENOXAPARIN 40 MG/0.4 ML SYRINGE SUBCUT SCH (05:07)
[2020-09-02] MEDS: LEVOTHYROXINE 50 MCG TABLET PO SCH (05:48)
[2020-09-02] MEDS: PANTOPRAZOLE 40 MG TABLET PO SCH (08:48)
[2020-09-03] MEDS: LEVOTHYROXINE 50 MCG TABLET PO SCH (05:34)
[2020-09-03] MEDS: ENOXAPARIN 40 MG/0.4 ML SYRINGE SUBCUT SCH (05:34)
[2020-09-03 05:46] LABS: Basophils % 0.8 % (0.0-0.8); Eosinophils # 0.1 10*3/uL (0.0-0.87); Eosinophils % 2.3 % (0.00-10.9); Hematocrit 35.4 VOL% (42.0-52.0); Immature Granulocytes % 0.5 %; Immature Granulocytes Absolute 0.02 #; Lymphocytes # 0.8 10*3/uL (1.4-4.0); Mean Corpuscular HGB Conc 33.9 GM/DL (32-36); Mean Corpuscular Volume 95.4 FL (87-102); Mean Platelet Volume 10.1 FL (9.6-12.0); Monocytes % 18.2 % (1.7-12.7); Neutrophils % 57.2 % (38.7-73.9); Platelet Count 248 T/CUMM (130-400); Red Blood Count 3.71 MC/CUMM (3.8-5.5)
[2020-09-03 06:13] LABS: Anisocytosis 1+; Band Neutrophils 1 % (0-10); Lymphocytes 27 % (20-55); Macrocytosis 1+; Platelet Estimate Normal; Segmented Neutrophils 57 % (50-85); Total Cells Counted 100
[2020-09-03] MEDS: PANTOPRAZOLE 40 MG TABLET PO SCH (09:06)
[2020-09-04] MEDS: LEVOTHYROXINE 50 MCG TABLET PO SCH (06:04)
[2020-09-04] MEDS: ENOXAPARIN 40 MG/0.4 ML SYRINGE SUBCUT SCH (06:04)
[2020-09-04] MEDS: PANTOPRAZOLE 40 MG TABLET PO SCH (08:45)
[2020-09-05] MEDS: LEVOTHYROXINE 50 MCG TABLET PO SCH (05:53)
[2020-09-05] MEDS: ENOXAPARIN 40 MG/0.4 ML SYRINGE SUBCUT SCH (05:53)
[2020-09-05] MEDS: PANTOPRAZOLE 40 MG TABLET PO SCH (09:12)
[2020-09-06] MEDS: LEVOTHYROXINE 50 MCG TABLET PO SCH (05:49)
[2020-09-06] MEDS: ENOXAPARIN 40 MG/0.4 ML SYRINGE SUBCUT SCH (05:49)
[2020-09-06] MEDS: PANTOPRAZOLE 40 MG TABLET PO SCH (08:42)
[2020-09-07] MEDS: ENOXAPARIN 40 MG/0.4 ML SYRINGE SUBCUT SCH (05:53)
[2020-09-07] MEDS: LEVOTHYROXINE 50 MCG TABLET PO SCH (05:53)
[2020-09-07] MEDS: PANTOPRAZOLE 40 MG TABLET PO SCH (07:59)
[2020-09-07 11:17] VITALS: BP 105/58
== END 2020-09-07 18:10 | disposition home or self-care (01) | DRG 143 ==
LOC: EDUNIT# → EDBD → N.ED 10:19 → N.4E 11:43
PROVIDERS: ADMIT Surgery; ATTEND Surgery

== ENCOUNTER 2020-09-14 20:31 | Inpatient (IN) ==
[2020-09-14 21:51] LABS: Basophils # 0.1 10*3/uL (0.0-0.2); Basophils % 1.2 % (0.0-0.8); Eosinophils # 0.1 10*3/uL (0.0-0.87); Eosinophils % 1.8 % (0.00-10.9); Hematocrit 40.1 VOL% (42.0-52.0); Hemoglobin 13.4 GM/DL (14.0-18.0); Immature Granulocytes % 0.7 %; Immature Granulocytes Absolute 0.03 #; Lymphocytes # 1.6 10*3/uL (1.4-4.0); Lymphocytes % 35.9 % (21.2-54.2); Mean Corpuscular HGB Conc 33.4 GM/DL (32-36); Mean Corpuscular Volume 93.7 FL (87-102); Mean Platelet Volume 8.4 FL (9.6-12.0); Monocytes % 11.3 % (1.7-12.7); Neutrophils % 49.1 % (38.7-73.9); Platelet Count 405 T/CUMM (130-400); Red Blood Count 4.28 MC/CUMM (3.8-5.5); Red Cell Distribution Width 12.7 % (9.3-17.3); White Blood Count 4.3 T/CUMM (4-12)
[2020-09-14 22:09] LABS: INR 1.9; PT Patient Result 19.7 SECS (9.8-11.9); Partial Thromboplastin Time 38.4 SECS (23.9-33.8)
[2020-09-14 22:15] LABS: Alanine Aminotransferase 21 U/L (16-61); Albumin 3.5 G/DL (3.4-5.0); Alkaline Phosphatase 94 U/L (45-117); Aspartate Amino Transferase 38 U/L (0-37); Bilirubin,Total < 0.39 MG/DL (0.2-1.0); Blood Urea Nitrogen 4 MG/DL (7-18); Calcium 8.3 MG/DL (8.5-10.1); Carbon Dioxide 25 MMOL/L (21-32); Estimated Glom Filtration Rate 113 ML/MIN; Glucose 76 MG/DL (74-106); Osmolality,Calculated 268.8 MOS/KG (273-304); Potassium 3.9 MMOL/L (3.5-5.1); Sodium 137 MMOL/L (136-145); Total Protein 7.9 G/DL (5.0-7.5)
[2020-09-15] MEDS ORDERED: ACETAMINOPHEN 325 MG TABLET PO PRN (08:39)
[2020-09-15] MEDS ORDERED: ALBUTEROL/IPRATROPIUM 3 ML NEB RESP TX PRN (08:39)
[2020-09-15] MEDS ORDERED: BISACODYL 5 MG TABLET PO PRN (08:39)
[2020-09-15] MEDS ORDERED: ONDANSETRON 4 MG/2 ML VIAL IV PRN (08:39)
[2020-09-15] MEDS: KETOROLAC 15 MG/1 ML VIAL IV PRN ×2 (09:25→20:40)
[2020-09-15] MEDS: PANTOPRAZOLE 40 MG TABLET PO SCH (09:28)
[2020-09-15] MEDS: HYDROmorphone 2 MG/1 ML VIAL IV PRN (11:23)
[2020-09-15] MEDS ORDERED: PHYTONADIONE 10 MG/1 ML AMP SUBCUT ONE (13:18)
[2020-09-15] MEDS: ALBUTEROL/IPRATROPIUM 3 ML NEB RESP TX SCH ×2 (13:50→20:10)
[2020-09-16] MEDS: ALBUTEROL/IPRATROPIUM 3 ML NEB RESP TX SCH ×4 (01:10→19:43)
[2020-09-16] MEDS: KETOROLAC 15 MG/1 ML VIAL IV PRN (03:15)
[2020-09-16] MEDS: ENOXAPARIN 40 MG/0.4 ML SYRINGE SUBCUT SCH (05:31)
[2020-09-16 06:08] LABS: INR 1.1; PT Patient Result 11.4 SECS (9.8-11.9)
[2020-09-16 06:16] LABS: Basophils # 0.1 10*3/uL (0.0-0.2); Basophils % 0.6 % (0.0-0.8); Eosinophils % 0.3 % (0.00-10.9); Hematocrit 38.8 VOL% (42.0-52.0); Hemoglobin 13.4 GM/DL (14.0-18.0); Immature Granulocytes % 0.3 %; Immature Granulocytes Absolute 0.03 #; Lymphocytes # 1.2 10*3/uL (1.4-4.0); Mean Corpuscular HGB Conc 34.5 GM/DL (32-36); Mean Corpuscular Volume 91.5 FL (87-102); Mean Platelet Volume 9.4 FL (9.6-12.0); Neutrophils % 77.8 % (38.7-73.9); Platelet Count 374 T/CUMM (130-400); Red Blood Count 4.24 MC/CUMM (3.8-5.5); Red Cell Distribution Width 12.6 % (9.3-17.3)
[2020-09-16] MEDS: PANTOPRAZOLE 40 MG TABLET PO SCH (08:50)
[2020-09-17] MEDS: ALBUTEROL/IPRATROPIUM 3 ML NEB RESP TX SCH ×4 (02:13→19:36)
[2020-09-17] MEDS: ENOXAPARIN 40 MG/0.4 ML SYRINGE SUBCUT SCH (05:48)
[2020-09-17] MEDS: KETOROLAC 15 MG/1 ML VIAL IV PRN ×3 (06:08→19:30)
[2020-09-17] MEDS: PANTOPRAZOLE 40 MG TABLET PO SCH (08:07)
[2020-09-17] MEDS ORDERED: HEPARIN/NACL 0.9% 2 UNITS/ML 500 ML IV ONE (08:12)
[2020-09-17] MEDS ORDERED: ROCURONIUM 50 MG/5 ML VIAL IV ONE (08:20)
[2020-09-17] MEDS ORDERED: MIDAZOLAM 2 MG/2 ML VIAL ONE (08:20)
[2020-09-17] MEDS ORDERED: fentaNYL 100 MCG/2 ML VIAL ONE (08:20)
[2020-09-17] MEDS ORDERED: propofoL 200 MG/20 ML VIAL IV ONE (08:20)
[2020-09-17] MEDS ORDERED: LIDOCAINE 2% 5 ML VIAL ONE (08:20)
[2020-09-17] MEDS ORDERED: ETOMIDATE 40 MG/20 ML VIAL IV ONE (08:26)
[2020-09-17] MEDS ORDERED: LACTATED RINGERS 1,000 ML IV SCH (08:30)
[2020-09-17] MEDS ORDERED: LACTATED RINGERS 1,000 ML IV ONE (09:54)
[2020-09-17] MEDS ORDERED: PHENYLEPHRINE 10 MG/1 ML VIAL IV ONE (10:18)
[2020-09-17] MEDS ORDERED: SUGAMMADEX 200 MG/2 ML VIAL IV ONE (10:33)
[2020-09-17] MEDS ORDERED: ACETAMINOPHEN 1,000 MG/100 ML VIAL IV ONE (10:36)
[2020-09-17] MEDS ORDERED: ONDANSETRON 4 MG/2 ML VIAL ONE (10:38)
[2020-09-17] MEDS ORDERED: SEVOFLURANE 1 UNIT/15 MINUTE INH ONE (11:02)
[2020-09-17] MEDS: fentaNYL 2 MCG/ROPIV 0.2% EPID 100 ML EPIDURAL SCH (11:20)
[2020-09-17 11:29] LABS: Bilirubin,Urine Negative (Negative); Blood, Urine Negative (Negative); Glucose,Urine (UA) Negative (Negative); Ketones,Urine Negative (Negative); Mucus,Urine Occasional /LPF (Occasional); Nitrite,Urine Negative (Negative); Protein,Urine Negative; RBC,Urine <1 /HPF (0-4); Squamous Epithelial Cell,Urine Occasional /HPF (0-10); Urine Appearance CLEAR (Clear); Urine Color Yellow (Yellow); Urine Specific Gravity 1.011 (1.001-1.035); Urine Urobilinogen < 2.0 EU/DL (0.2-1.0); WBC,Urine <1 /HPF (0-6)
[2020-09-17 11:54] LABS: Basophils % 0.2 % (0.0-0.8); Eosinophils % 0.1 % (0.00-10.9); Hematocrit 35.7 VOL% (42.0-52.0); Hemoglobin 11.7 GM/DL (14.0-18.0); Immature Granulocytes % 0.9 %; Immature Granulocytes Absolute 0.15 #; Lymphocytes # 2.3 10*3/uL (1.4-4.0); Lymphocytes % 13.4 % (21.2-54.2); Mean Corpuscular HGB Conc 32.8 GM/DL (32-36); Mean Corpuscular Volume 95.5 FL (87-102); Mean Platelet Volume 9.1 FL (9.6-12.0); Monocytes % 5.8 % (1.7-12.7); Neutrophils % 79.6 % (38.7-73.9); Platelet Count 342 T/CUMM (130-400); Red Blood Count 3.74 MC/CUMM (3.8-5.5); Red Cell Distribution Width 12.8 % (9.3-17.3)
[2020-09-17 12:19] LABS: Calcium 7.8 MG/DL (8.5-10.1); Osmolality,Calculated 263.5 MOS/KG (273-304)
[2020-09-17] MEDS: LACTATED RINGERS 1,000 ML IV SCH (12:54)
[2020-09-17] MEDS: PHENYLEPHRINE DRIP 40 MG/250 ML PREMIX IV PRN ×2 (13:00→17:01)
[2020-09-17] MEDS ORDERED: SODIUM CHLORIDE 0.9% 1,000 ML IV SCH (13:00)
[2020-09-17] MEDS ORDERED: MAGNESIUM SULF RIDER 4 GM in PREMIX 1 EACH IV ONE (13:30)
[2020-09-17] MEDS ORDERED: MAGNESIUM SULF RIDER 50 ML IV ONE (13:32)
[2020-09-17] MEDS: HYDROmorphone 2 MG/1 ML VIAL IV PRN ×2 (13:41→23:35)
[2020-09-17] MEDS ORDERED: MAGNESIUM SULF RIDER 2 GM in PREMIX 1 EACH IV ONE (14:00)
[2020-09-18] MEDS: ALBUTEROL/IPRATROPIUM 3 ML NEB RESP TX SCH ×4 (01:00→19:22)
[2020-09-18] MEDS: LACTATED RINGERS 1,000 ML IV SCH ×3 (03:10→23:00)
[2020-09-18] MEDS: HYDROmorphone 2 MG/1 ML VIAL IV PRN ×2 (04:05→07:28)
[2020-09-18 04:44] LABS: Calcium 7.4 MG/DL (8.5-10.1); Osmolality,Calculated 266.1 MOS/KG (273-304); Potassium 4.4 MMOL/L (3.5-5.1)
[2020-09-18 04:52] LABS: Basophils # 0.1 10*3/uL (0.0-0.2); Basophils % 0.4 % (0.0-0.8); Eosinophils # 0.1 10*3/uL (0.0-0.87); Eosinophils % 0.6 % (0.00-10.9); Hematocrit 23.5 VOL% (42.0-52.0); Immature Granulocytes % 0.7 %; Immature Granulocytes Absolute 0.11 #; Lymphocytes # 1.2 10*3/uL (1.4-4.0); Lymphocytes % 7.6 % (21.2-54.2); Mean Corpuscular HGB Conc 31.9 GM/DL (32-36); Mean Corpuscular Volume 97.9 FL (87-102); Mean Platelet Volume 9.8 FL (9.6-12.0); Monocytes % 5.5 % (1.7-12.7); Neutrophils % 85.2 % (38.7-73.9); Red Cell Distribution Width 12.6 % (9.3-17.3); White Blood Count 16.3 T/CUMM (4-12)
[2020-09-18 04:54] LABS: Hemoglobin 7.5 GM/DL (14.0-18.0); Platelet Count 272 T/CUMM (130-400)
[2020-09-18] MEDS: PHENYLEPHRINE DRIP 40 MG/250 ML PREMIX IV PRN (05:26)
[2020-09-18] MEDS: fentaNYL 2 MCG/ROPIV 0.2% EPID 100 ML EPIDURAL SCH ×3 (06:14→23:31)
[2020-09-18] MEDS: PANTOPRAZOLE 40 MG TABLET PO SCH (08:05)
[2020-09-18] MEDS ORDERED: SODIUM CHLORIDE 0.9% 1,000 ML IV PRN (11:23)
[2020-09-18] MEDS: KETOROLAC 15 MG/1 ML VIAL IV PRN (16:50)
[2020-09-18] MEDS: KETOROLAC 15 MG/1 ML VIAL IV SCH ×2 (17:18→23:36)
[2020-09-19] MEDS: ALBUTEROL/IPRATROPIUM 3 ML NEB RESP TX SCH ×4 (01:07→19:18)
[2020-09-19] MEDS: fentaNYL 2 MCG/ROPIV 0.2% EPID 100 ML EPIDURAL SCH ×2 (04:29→13:23)
[2020-09-19] MEDS: HYDROmorphone 2 MG/1 ML VIAL IV PRN ×2 (04:43→09:29)
[2020-09-19 04:55] LABS: Basophils % 0.3 % (0.0-0.8); Eosinophils # 0.3 10*3/uL (0.0-0.87); Eosinophils % 1.9 % (0.00-10.9); Hematocrit 38.5 VOL% (42.0-52.0); Immature Granulocytes % 0.4 %; Immature Granulocytes Absolute 0.06 #; Lymphocytes # 0.8 10*3/uL (1.4-4.0); Lymphocytes % 6.1 % (21.2-54.2); Mean Corpuscular HGB Conc 32.5 GM/DL (32-36); Mean Corpuscular Volume 90.4 FL (87-102); Mean Platelet Volume 9.7 FL (9.6-12.0); Monocytes % 8.4 % (1.7-12.7); Neutrophils % 82.9 % (38.7-73.9); Platelet Count 204 T/CUMM (130-400); Red Blood Count 4.26 MC/CUMM (3.8-5.5); White Blood Count 13.5 T/CUMM (4-12)
[2020-09-19 04:58] LABS: Hemoglobin 12.5 GM/DL (14.0-18.0)
[2020-09-19] MEDS: KETOROLAC 15 MG/1 ML VIAL IV SCH (05:18)
[2020-09-19] MEDS: ENOXAPARIN 40 MG/0.4 ML SYRINGE SUBCUT SCH (05:18)
[2020-09-19 05:20] LABS: Calcium 8.4 MG/DL (8.5-10.1); Osmolality,Calculated 254.9 MOS/KG (273-304); Potassium 4.5 MMOL/L (3.5-5.1)
[2020-09-19] MEDS: PANTOPRAZOLE 40 MG TABLET PO SCH (08:31)
[2020-09-19] MEDS ORDERED: LEVOTHYROXINE 50 MCG TABLET PO ONE (08:41)
[2020-09-19] MEDS: KETOROLAC 15 MG/1 ML VIAL IV PRN ×2 (11:14→18:07)
[2020-09-20] MEDS: ALBUTEROL/IPRATROPIUM 3 ML NEB RESP TX SCH ×4 (00:15→19:22)
[2020-09-20] MEDS: fentaNYL 2 MCG/ROPIV 0.2% EPID 100 ML EPIDURAL SCH ×2 (04:22→17:50)
[2020-09-20] MEDS: ENOXAPARIN 40 MG/0.4 ML SYRINGE SUBCUT SCH (04:37)
[2020-09-20] MEDS: LEVOTHYROXINE 50 MCG TABLET PO SCH ×2 (05:44→06:24)
[2020-09-20 07:45] LABS: Basophils % 0.1 % (0.0-0.8); Eosinophils # 0.1 10*3/uL (0.0-0.87); Eosinophils % 0.4 % (0.00-10.9); Hematocrit 34.6 VOL% (42.0-52.0); Hemoglobin 11.6 GM/DL (14.0-18.0); Immature Granulocytes % 3.2 %; Immature Granulocytes Absolute 0.61 #; Lymphocytes # 0.9 10*3/uL (1.4-4.0); Lymphocytes % 4.9 % (21.2-54.2); Mean Corpuscular HGB Conc 33.5 GM/DL (32-36); Mean Corpuscular Volume 87.4 FL (87-102); Mean Platelet Volume 9.3 FL (9.6-12.0); Monocytes % 12.8 % (1.7-12.7); Neutrophils % 78.6 % (38.7-73.9); Platelet Count 235 T/CUMM (130-400); Red Blood Count 3.96 MC/CUMM (3.8-5.5); Red Cell Distribution Width 14.4 % (9.3-17.3); White Blood Count 18.9 T/CUMM (4-12)
[2020-09-20 08:08] LABS: Band Neutrophils 1 % (0-10); Eosinophils 1 % (0-10); Lymphocytes 3 % (20-55); Platelet Estimate Adequate; Segmented Neutrophils 88 % (50-85); Total Cells Counted 100
[2020-09-20 08:11] LABS: Calcium 7.9 MG/DL (8.5-10.1); Osmolality,Calculated 250.2 MOS/KG (273-304); Potassium 3.4 MMOL/L (3.5-5.1)
[2020-09-20] MEDS: PANTOPRAZOLE 40 MG TABLET PO SCH (10:26)
[2020-09-20] MEDS ORDERED: MAGNESIUM SULF RIDER 4 GM in PREMIX 1 EACH IV ONE (10:54)
[2020-09-20] MEDS: SODIUM CHLORIDE 0.9% 1,000 ML IV SCH (13:54)
[2020-09-21] MEDS: ALBUTEROL/IPRATROPIUM 3 ML NEB RESP TX SCH ×4 (01:10→19:51)
[2020-09-21] MEDS: ENOXAPARIN 40 MG/0.4 ML SYRINGE SUBCUT SCH (05:43)
[2020-09-21] MEDS: LEVOTHYROXINE 50 MCG TABLET PO SCH ×2 (05:58→09:25)
[2020-09-21 06:00] LABS: Basophils % 0.1 % (0.0-0.8); Eosinophils % 0.2 % (0.00-10.9); Hematocrit 37.6 VOL% (42.0-52.0); Hemoglobin 12.8 GM/DL (14.0-18.0); Immature Granulocytes % 1.3 %; Immature Granulocytes Absolute 0.22 #; Lymphocytes # 0.5 10*3/uL (1.4-4.0); Lymphocytes % 2.8 % (21.2-54.2); Mean Corpuscular Volume 87.2 FL (87-102); Mean Platelet Volume 9.7 FL (9.6-12.0); Monocytes % 14.2 % (1.7-12.7); Neutrophils % 81.4 % (38.7-73.9); Platelet Count 287 T/CUMM (130-400); Red Blood Count 4.31 MC/CUMM (3.8-5.5); Red Cell Distribution Width 14.1 % (9.3-17.3); White Blood Count 17.6 T/CUMM (4-12)
[2020-09-21 06:26] LABS: Band Neutrophils 1 % (0-10); Lymphocytes 1 % (20-55); Osmolality,Calculated 252.2 MOS/KG (273-304); Platelet Estimate Adequate; Potassium 2.9 MMOL/L (3.5-5.1); Segmented Neutrophils 85 % (50-85); Total Cells Counted 100
[2020-09-21 06:27] LABS: Hypochromasia 1+; Microcytosis 1+
[2020-09-21] MEDS: fentaNYL 2 MCG/ROPIV 0.2% EPID 100 ML EPIDURAL SCH (07:25)
[2020-09-21] MEDS: SODIUM CHLORIDE 0.9% 1,000 ML IV SCH ×3 (07:26→17:25)
[2020-09-21] MEDS: PANTOPRAZOLE 40 MG TABLET PO SCH (09:25)
[2020-09-22] MEDS: ALBUTEROL/IPRATROPIUM 3 ML NEB RESP TX SCH ×4 (01:31→19:23)
[2020-09-22] MEDS: ENOXAPARIN 40 MG/0.4 ML SYRINGE SUBCUT SCH (05:15)
[2020-09-22] MEDS: SODIUM CHLORIDE 0.9% 1,000 ML IV SCH (05:44)
[2020-09-22] MEDS: LEVOTHYROXINE 50 MCG TABLET PO SCH (05:45)
[2020-09-22] MEDS: PANTOPRAZOLE 40 MG TABLET PO SCH (08:36)
[2020-09-22] MEDS: POTASSIUM CHLORIDE 20 MEQ TABLET PO PRN ×3 (12:12→17:52)
[2020-09-22] MEDS ORDERED: HYDROmorphone 2 MG/1 ML VIAL IV PRN (22:25)
[2020-09-23] MEDS: ALBUTEROL/IPRATROPIUM 3 ML NEB RESP TX SCH ×4 (00:17→19:13)
[2020-09-23] MEDS: ENOXAPARIN 40 MG/0.4 ML SYRINGE SUBCUT SCH (06:00)
[2020-09-23] MEDS: LEVOTHYROXINE 50 MCG TABLET PO SCH (06:00)
[2020-09-23] MEDS: PANTOPRAZOLE 40 MG TABLET PO SCH (08:34)
[2020-09-23] MEDS: POTASSIUM CHLORIDE 20 MEQ TABLET PO PRN ×3 (14:28→18:27)
[2020-09-24] MEDS: POTASSIUM CHLORIDE 20 MEQ TABLET PO PRN ×4 (00:18→20:30)
[2020-09-24] MEDS: ALBUTEROL/IPRATROPIUM 3 ML NEB RESP TX SCH ×4 (00:49→20:18)
[2020-09-24] MEDS: ENOXAPARIN 40 MG/0.4 ML SYRINGE SUBCUT SCH (06:01)
[2020-09-24] MEDS: LEVOTHYROXINE 50 MCG TABLET PO SCH (06:02)
[2020-09-24] MEDS: PANTOPRAZOLE 40 MG TABLET PO SCH (08:49)
[2020-09-25] MEDS: ALBUTEROL/IPRATROPIUM 3 ML NEB RESP TX SCH ×4 (00:40→20:08)
[2020-09-25] MEDS: ENOXAPARIN 40 MG/0.4 ML SYRINGE SUBCUT SCH (05:40)
[2020-09-25] MEDS: LEVOTHYROXINE 50 MCG TABLET PO SCH (05:40)
[2020-09-25] MEDS: PANTOPRAZOLE 40 MG TABLET PO SCH (08:49)
[2020-09-26] MEDS: ALBUTEROL/IPRATROPIUM 3 ML NEB RESP TX SCH ×4 (00:50→19:06)
[2020-09-26] MEDS: LEVOTHYROXINE 50 MCG TABLET PO SCH (06:05)
[2020-09-26] MEDS: ENOXAPARIN 40 MG/0.4 ML SYRINGE SUBCUT SCH (06:05)
[2020-09-26] MEDS: PANTOPRAZOLE 40 MG TABLET PO SCH (09:47)
[2020-09-27] MEDS: ALBUTEROL/IPRATROPIUM 3 ML NEB RESP TX SCH ×4 (00:35→19:42)
[2020-09-27] MEDS: ENOXAPARIN 40 MG/0.4 ML SYRINGE SUBCUT SCH (04:37)
[2020-09-27] MEDS: LEVOTHYROXINE 50 MCG TABLET PO SCH (06:05)
[2020-09-27] MEDS: PANTOPRAZOLE 40 MG TABLET PO SCH (08:59)
[2020-09-28] MEDS: ALBUTEROL/IPRATROPIUM 3 ML NEB RESP TX SCH ×4 (00:32→20:20)
[2020-09-28] MEDS: LEVOTHYROXINE 50 MCG TABLET PO SCH (06:00)
[2020-09-28] MEDS: ENOXAPARIN 40 MG/0.4 ML SYRINGE SUBCUT SCH (06:00)
[2020-09-28] MEDS: PANTOPRAZOLE 40 MG TABLET PO SCH (08:40)
[2020-09-29] MEDS: ALBUTEROL/IPRATROPIUM 3 ML NEB RESP TX SCH ×2 (00:36→07:33)
[2020-09-29] MEDS: ENOXAPARIN 40 MG/0.4 ML SYRINGE SUBCUT SCH (05:10)
[2020-09-29] MEDS: LEVOTHYROXINE 50 MCG TABLET PO SCH (05:44)
[2020-09-29] MEDS: PANTOPRAZOLE 40 MG TABLET PO SCH (09:17)
[2020-09-29 11:58] VITALS: BP 120/61
== END 2020-09-29 13:50 | DRG 120 ==
LOC: EDUNIT# → EDBD → N.ED 20:31 → N.EDINP 21:58 → N.3E 09-15 00:19 → N.ICU 09-17 11:38 → N.TELES 09-19 11:56 → N.2E 09-22 10:04
PROVIDERS: ADMIT Surgery; ATTEND Surgery

== ENCOUNTER 2021-10-25 17:08 | Inpatient (IN) ==
[2021-10-25 17:46] LABS: Basophils % 0.3 % (0.0-0.8); Hematocrit 32.3 VOL% (42.0-52.0); Hemoglobin 10.9 GM/DL (14.0-18.0); Immature Granulocytes % 0.7 %; Immature Granulocytes Absolute 0.08 #; Lymphocytes # 1.1 10*3/uL (1.4-4.0); Lymphocytes % 9.7 % (21.2-54.2); Mean Corpuscular HGB Conc 33.7 GM/DL (32-36); Mean Corpuscular Volume 86.6 FL (87-102); Mean Platelet Volume 8.7 FL (9.6-12.0); Monocytes % 8.9 % (1.7-12.7); Neutrophils % 80.4 % (38.7-73.9); Platelet Count 284 T/CUMM (130-400); Red Blood Count 3.73 MC/CUMM (3.8-5.5); White Blood Count 11.5 T/CUMM (4-12)
[2021-10-25 18:10] LABS: Albumin 2.8 G/DL (3.4-5.0); Calcium 9.2 MG/DL (8.5-10.1); Osmolality,Calculated 254.4 MOS/KG (273-304); Potassium 3.4 MMOL/L (3.5-5.1); Total Protein 7.6 G/DL (6.4-8.2)
[2021-10-25] MEDS ORDERED: ONDANSETRON 4 MG/2 ML VIAL IV STA (18:22)
[2021-10-25] MEDS ORDERED: SODIUM CHLORIDE 0.9% 500 ML IV STA (18:22)
[2021-10-25] MEDS ORDERED: methylPREDNISolone SOD SUC 125 MG/2 ML VIAL IV STA (18:22)
[2021-10-25] MEDS ORDERED: ALBUTEROL NEB SOLN 5 MG/ML 20 ML/BOTTLE CONT NEB SCH (18:30)
[2021-10-25] MEDS ORDERED: MAGNESIUM SULF RIDER 2 GM/50 ML PREMIX IV STA (19:26)
[2021-10-25] MEDS ORDERED: SODIUM CHLORIDE 0.9% 1,000 ML IV STA (20:13)
[2021-10-25] MEDS ORDERED: hydrALAZINE 20 MG/1 ML VIAL IV PRN (21:01)
[2021-10-25] MEDS ORDERED: ONDANSETRON 4 MG/2 ML VIAL IV PRN (21:01)
[2021-10-25] MEDS ORDERED: MORPHINE 2 MG/1 ML SYRINGE IV PRN (21:01)
[2021-10-25] MEDS ORDERED: ZALEPLON 5 MG CAPSULE PO PRN (21:01)
[2021-10-25] MEDS ORDERED: ACETAMINOPHEN 325 MG TABLET PO PRN (21:01)
[2021-10-25] MEDS ORDERED: NICOTINE 21 MG/24 HR PATCH TRANSDERM PRN (21:01)
[2021-10-25] MEDS ORDERED: diphenhydrAMINE CAP 25 MG CAPSULE PO PRN (21:01)
[2021-10-25] MEDS ORDERED: guaiFENesin/DM ER 600-30 MG TABLET PO PRN (21:01)
[2021-10-25] MEDS ORDERED: GLUCAGON 1 MG VIAL IM PRN (21:01)
[2021-10-25] MEDS ORDERED: DEXTROSE 10% 250 ML BAG IV PRN (21:10)
[2021-10-25] MEDS: ALBUTEROL/IPRATROPIUM 3 ML NEB RESP TX SCH (22:55)
[2021-10-26] MEDS: ALBUTEROL/IPRATROPIUM 3 ML NEB RESP TX SCH ×6 (02:39→23:20)
[2021-10-26] MEDS: SODIUM CHLORIDE 0.9% 1,000 ML IV SCH ×2 (02:59→10:09)
[2021-10-26 03:23] LABS: Hematocrit 27.6 VOL% (42.0-52.0); Hemoglobin 9.2 GM/DL (14.0-18.0); Immature Granulocytes % 0.5 %; Immature Granulocytes Absolute 0.03 #; Lymphocytes # 0.3 10*3/uL (1.4-4.0); Lymphocytes % 4.8 % (21.2-54.2); Mean Corpuscular HGB Conc 33.3 GM/DL (32-36); Mean Corpuscular Volume 87.3 FL (87-102); Mean Platelet Volume 8.9 FL (9.6-12.0); Monocytes # 0.1 10*3/uL (0.11-0.8); Monocytes % 0.9 % (1.7-12.7); Neutrophils % 93.8 % (38.7-73.9); Platelet Count 240 T/CUMM (130-400); Red Blood Count 3.16 MC/CUMM (3.8-5.5); Red Cell Distribution Width 13.7 % (9.3-17.3); White Blood Count 6.5 T/CUMM (4-12)
[2021-10-26 03:49] LABS: Lymphocytes 1 % (20-55); Total Cells Counted 100
[2021-10-26 03:50] LABS: Hypochromia 1+
[2021-10-26 03:51] LABS: Albumin 2.4 G/DL (3.4-5.0); Bilirubin,Total 0.4 MG/DL (0.20-1.00); Calcium 8.6 MG/DL (8.5-10.1); Microcytosis 1+; Osmolality,Calculated 261.8 MOS/KG (273-304); Potassium 3.3 MMOL/L (3.5-5.1); Total Protein 7.1 G/DL (6.4-8.2)
[2021-10-26] MEDS: LEVOFLOXACIN INJ 500 MG/100 ML PREMIX IV SCH (10:05)
[2021-10-26] MEDS: PANTOPRAZOLE 40 MG TABLET PO SCH (10:07)
[2021-10-26] MEDS: methylPREDNISolone SOD SUC 40 MG/1 ML VIAL IV SCH ×2 (10:07→16:59)
[2021-10-26] MEDS ORDERED: MAGNESIUM SULF RIDER 2 GM/50 ML PREMIX IV ONE (10:52)
[2021-10-26] MEDS ORDERED: POTASSIUM CHLORIDE RIDER 10 MEQ/100 ML PREMIX IV SCH (11:00)
[2021-10-26] MEDS: POTASSIUM CHLORIDE RIDER 10 MEQ/100 ML PREMIX IV SCH ×2 (12:39→14:57)
[2021-10-27] MEDS: SODIUM CHLORIDE 0.9% 1,000 ML IV SCH (00:03)
[2021-10-27] MEDS: ALBUTEROL/IPRATROPIUM 3 ML NEB RESP TX SCH ×3 (03:45→10:25)
[2021-10-27 05:04] LABS: Basophils % 0.1 % (0.0-0.8); Hematocrit 26.1 VOL% (42.0-52.0); Hemoglobin 8.7 GM/DL (14.0-18.0); Immature Granulocytes % 1.5 %; Immature Granulocytes Absolute 0.16 #; Lymphocytes # 0.5 10*3/uL (1.4-4.0); Lymphocytes % 4.6 % (21.2-54.2); Mean Corpuscular HGB Conc 33.3 GM/DL (32-36); Mean Corpuscular Volume 87.3 FL (87-102); Mean Platelet Volume 8.9 FL (9.6-12.0); Monocytes # 0.3 10*3/uL (0.11-0.8); Monocytes % 2.4 % (1.7-12.7); Neutrophils % 91.4 % (38.7-73.9); Platelet Count 253 T/CUMM (130-400); Red Blood Count 2.99 MC/CUMM (3.8-5.5); Red Cell Distribution Width 13.7 % (9.3-17.3); White Blood Count 10.6 T/CUMM (4-12)
[2021-10-27 05:20] LABS: Calcium 8.2 MG/DL (8.5-10.1); Osmolality,Calculated 257.8 MOS/KG (273-304); Potassium 3.4 MMOL/L (3.5-5.1)
[2021-10-27 05:33] LABS: Hypochromia 1+; Lymphocytes 2 % (20-55); Total Cells Counted 100
[2021-10-27 05:34] LABS: Microcytosis 1+; Ovalocytes Slight; Platelet Estimate Normal
[2021-10-27] MEDS: LEVOFLOXACIN INJ 500 MG/100 ML PREMIX IV SCH (06:21)
[2021-10-27] MEDS: methylPREDNISolone SOD SUC 40 MG/1 ML VIAL IV SCH ×2 (07:55)
[2021-10-27 08:44] VITALS: BP 110/68
[2021-10-27] MEDS ORDERED: NICOTINE 21 MG/24 HR PATCH TRANSDERM SCH (09:00)
[2021-10-27] MEDS: PANTOPRAZOLE 40 MG TABLET PO SCH (09:00)
[2021-10-27] MEDS ORDERED: predniSONE 20 MG TABLET PO SCH (10:00)
[2021-10-27] MEDS ORDERED: LEVOFLOXACIN 500 MG TABLET PO SCH (10:30)
== END 2021-10-27 11:39 | disposition home or self-care (01) | DRG 140 ==
LOC: EDUNIT# → EDBD → N.ED 17:08 → N.EDINP 21:01 → N.TELEN 23:14
PROVIDERS: ADMIT Internal Medicine; ATTEND Internal Medicine

== ENCOUNTER 2021-12-08 19:46 | Inpatient (IN) ==
[2021-12-08 20:31] LABS: Basophils % 0.4 % (0.0-0.8); Hematocrit 34.7 VOL% (42.0-52.0); Hemoglobin 11.4 GM/DL (14.0-18.0); Immature Granulocytes % 1.1 %; Immature Granulocytes Absolute 0.08 #; Lymphocytes # 0.6 10*3/uL (1.4-4.0); Lymphocytes % 7.8 % (21.2-54.2); Mean Corpuscular HGB Conc 32.9 GM/DL (32-36); Mean Corpuscular Volume 91.8 FL (87-102); Mean Platelet Volume 9.5 FL (9.6-12.0); Monocytes # 0.6 10*3/uL (0.11-0.8); Monocytes % 7.5 % (1.7-12.7); Neutrophils % 83.2 % (38.7-73.9); Platelet Count 179 T/CUMM (130-400); Red Blood Count 3.78 MC/CUMM (3.8-5.5); Red Cell Distribution Width 14.2 % (9.3-17.3); White Blood Count 7.3 T/CUMM (4-12)
[2021-12-08] MEDS ORDERED: SODIUM CHLORIDE 0.9% 1,000 ML IV STA (20:32)
[2021-12-08 21:05] LABS: Arterial Base Excess iSTAT 2 MMOL/L (-2.5-2.5); Arterial Bicarbonate iSTAT 29.4 MMOL/L (20-26); Arterial O2 Saturation iSTAT 85 % (95-100); Arterial PCO2 iSTAT 55 MM HG (35-48); Arterial PO2 iSTAT 54 MM HG (80-95); Arterial Total CO2 iSTAT 31 MMO/L (23-27); Arterial pH iSTAT 7.333 (7.35-7.45)
[2021-12-08 21:07] LABS: Bilirubin,Total 0.9 MG/DL (0.20-1.00); Calcium 10.9 MG/DL (8.5-10.1); Osmolality,Calculated 264.7 MOS/KG (273-304); Potassium 4.7 MMOL/L (3.5-5.1); Total Protein 7.7 G/DL (6.4-8.2)
[2021-12-08] MEDS ORDERED: ALBUTEROL/IPRATROPIUM 3 ML NEB RESP TX STA (21:14)
[2021-12-08] MEDS ORDERED: LEVOFLOXACIN INJ 500 MG/100 ML PREMIX IV ONE (21:14)
[2021-12-08] MEDS ORDERED: NICOTINE 21 MG/24 HR PATCH TRANSDERM PRN (22:28)
[2021-12-08] MEDS ORDERED: DEXTROSE 10% 250 ML BAG IV PRN (22:28)
[2021-12-08] MEDS ORDERED: hydrALAZINE 20 MG/1 ML VIAL IV PRN (22:28)
[2021-12-08] MEDS ORDERED: ACETAMINOPHEN 325 MG TABLET PO PRN (22:28)
[2021-12-08] MEDS ORDERED: diphenhydrAMINE CAP 25 MG CAPSULE PO PRN (22:28)
[2021-12-08] MEDS ORDERED: ONDANSETRON 4 MG/2 ML VIAL IV PRN (22:28)
[2021-12-08] MEDS ORDERED: guaiFENesin/DM ER 600-30 MG TABLET PO PRN (22:28)
[2021-12-08] MEDS ORDERED: GLUCAGON 1 MG VIAL IM PRN (22:28)
[2021-12-08] MEDS ORDERED: ZALEPLON 5 MG CAPSULE PO PRN (22:28)
[2021-12-09] MEDS: ALBUTEROL/IPRATROPIUM 3 ML NEB RESP TX SCH ×5 (00:10→23:43)
[2021-12-09 05:42] LABS: Basophils % 0.4 % (0.0-0.8); Eosinophils % 0.1 % (0.00-10.9); Hematocrit 32.6 VOL% (42.0-52.0); Hemoglobin 10.5 GM/DL (14.0-18.0); Immature Granulocytes % 0.6 %; Immature Granulocytes Absolute 0.05 #; Lymphocytes # 1.1 10*3/uL (1.4-4.0); Lymphocytes % 14.1 % (21.2-54.2); Mean Corpuscular HGB Conc 32.2 GM/DL (32-36); Mean Corpuscular Volume 92.4 FL (87-102); Mean Platelet Volume 9.2 FL (9.6-12.0); Monocytes # 0.6 10*3/uL (0.11-0.8); Monocytes % 7.6 % (1.7-12.7); Neutrophils % 77.2 % (38.7-73.9); Platelet Count 162 T/CUMM (130-400); Red Blood Count 3.53 MC/CUMM (3.8-5.5); White Blood Count 7.9 T/CUMM (4-12)
[2021-12-09 05:55] LABS: Calcium 10.3 MG/DL (8.5-10.1); Osmolality,Calculated 266.2 MOS/KG (273-304); Potassium 3.4 MMOL/L (3.5-5.1)
[2021-12-09] MEDS: LEVOFLOXACIN INJ 500 MG/100 ML PREMIX IV SCH (09:05)
[2021-12-09] MEDS: PANTOPRAZOLE 40 MG TABLET PO SCH (09:08)
[2021-12-09] MEDS: methylPREDNISolone SOD SUC 40 MG/1 ML VIAL IV SCH ×3 (09:13→22:51)
[2021-12-09] MEDS: HEPARIN 5,000 UNIT/1 ML VIAL SUBCUT SCH ×2 (09:18→20:25)
[2021-12-09 14:12] LABS: Basophils % 0.1 % (0.0-0.8); Hematocrit 33.4 VOL% (42.0-52.0); Hemoglobin 10.8 GM/DL (14.0-18.0); Immature Granulocytes % 1.2 %; Immature Granulocytes Absolute 0.11 #; Lymphocytes # 0.3 10*3/uL (1.4-4.0); Lymphocytes % 3.1 % (21.2-54.2); Mean Corpuscular HGB Conc 32.3 GM/DL (32-36); Mean Corpuscular Volume 93.6 FL (87-102); Mean Platelet Volume 9.5 FL (9.6-12.0); Monocytes # 0.1 10*3/uL (0.11-0.8); Monocytes % 0.5 % (1.7-12.7); Neutrophils % 95.1 % (38.7-73.9); Platelet Count 169 T/CUMM (130-400); Red Blood Count 3.57 MC/CUMM (3.8-5.5); Red Cell Distribution Width 14.1 % (9.3-17.3); White Blood Count 9.3 T/CUMM (4-12)
[2021-12-09 14:33] LABS: Lymphocytes 4 % (20-55); Total Cells Counted 100
[2021-12-09 14:35] LABS: Platelet Estimate Adequate
[2021-12-09 14:36] LABS: Albumin 2.7 G/DL (3.4-5.0); Bilirubin,Total 0.7 MG/DL (0.20-1.00); Calcium 9.9 MG/DL (8.5-10.1); Potassium 3.7 MMOL/L (3.5-5.1); Total Protein 7.4 G/DL (6.4-8.2)
[2021-12-10 05:37] LABS: Hematocrit 29.6 VOL% (42.0-52.0); Hemoglobin 9.7 GM/DL (14.0-18.0); Immature Granulocytes % 0.7 %; Immature Granulocytes Absolute 0.04 #; Lymphocytes # 0.4 10*3/uL (1.4-4.0); Lymphocytes % 7.2 % (21.2-54.2); Mean Corpuscular HGB Conc 32.8 GM/DL (32-36); Mean Corpuscular Volume 91.6 FL (87-102); Mean Platelet Volume 9.9 FL (9.6-12.0); Monocytes # 0.1 10*3/uL (0.11-0.8); Monocytes % 0.9 % (1.7-12.7); Neutrophils % 91.2 % (38.7-73.9); Platelet Count 173 T/CUMM (130-400); Red Blood Count 3.23 MC/CUMM (3.8-5.5); Red Cell Distribution Width 13.9 % (9.3-17.3); White Blood Count 5.7 T/CUMM (4-12)
[2021-12-10 06:02] LABS: Hypochromia Slight; Lymphocytes 5 % (20-55); Platelet Estimate Adequate; Total Cells Counted 100
[2021-12-10 06:09] LABS: Albumin 2.6 G/DL (3.4-5.0); Bilirubin,Total 0.5 MG/DL (0.20-1.00); Calcium 9.5 MG/DL (8.5-10.1); Potassium 3.5 MMOL/L (3.5-5.1); Total Protein 7.1 G/DL (6.4-8.2)
[2021-12-10] MEDS: LEVOFLOXACIN INJ 500 MG/100 ML PREMIX IV SCH (06:22)
[2021-12-10] MEDS: methylPREDNISolone SOD SUC 40 MG/1 ML VIAL IV SCH ×3 (06:23→23:49)
[2021-12-10] MEDS: ALBUTEROL/IPRATROPIUM 3 ML NEB RESP TX SCH ×3 (07:34→20:05)
[2021-12-10] MEDS: PANTOPRAZOLE 40 MG TABLET PO SCH (09:08)
[2021-12-10] MEDS: HEPARIN 5,000 UNIT/1 ML VIAL SUBCUT SCH ×2 (09:08→23:49)
[2021-12-10] MEDS: MEGESTROL ES 125 MG/ML 30 ML/BOTTLE PO SCH (09:19)
[2021-12-11] MEDS: ALBUTEROL/IPRATROPIUM 3 ML NEB RESP TX SCH ×4 (00:20→19:25)
[2021-12-11 06:26] LABS: Basophils % 0.1 % (0.0-0.8); Hematocrit 30.4 VOL% (42.0-52.0); Immature Granulocytes % 0.7 %; Immature Granulocytes Absolute 0.06 #; Lymphocytes # 0.4 10*3/uL (1.4-4.0); Lymphocytes % 4.3 % (21.2-54.2); Mean Corpuscular HGB Conc 32.9 GM/DL (32-36); Mean Corpuscular Volume 92.7 FL (87-102); Mean Platelet Volume 9.6 FL (9.6-12.0); Monocytes # 0.2 10*3/uL (0.11-0.8); Monocytes % 1.8 % (1.7-12.7); Neutrophils % 93.1 % (38.7-73.9); Platelet Count 172 T/CUMM (130-400); Red Blood Count 3.28 MC/CUMM (3.8-5.5); Red Cell Distribution Width 14.1 % (9.3-17.3); White Blood Count 8.2 T/CUMM (4-12)
[2021-12-11 06:46] LABS: Lymphocytes 4 % (20-55); Nucleated Red Blood Cells 1 (0-5); Total Cells Counted 100
[2021-12-11 06:47] LABS: Microcytosis 1+; Platelet Estimate Adequate
[2021-12-11 06:54] LABS: Alanine Aminotransferase 10 U/L (16-61); Albumin 2.7 G/DL (3.4-5.0); Alkaline Phosphatase 88 U/L (45-117); Aspartate Amino Transferase 20 U/L (0-37); Bilirubin,Total < 0.39 MG/DL (0.20-1.00); Blood Urea Nitrogen 9 MG/DL (7-18); Calcium 9.7 MG/DL (8.5-10.1); Carbon Dioxide 31 MMOL/L (21-32); Chloride 101 MMOL/L (98-107); Glucose 137 MG/DL (74-106); Osmolality,Calculated 270.1 MOS/KG (273-304); Potassium 3.4 MMOL/L (3.5-5.1); Sodium 135 MMOL/L (136-145); Total Protein 7.1 G/DL (6.4-8.2)
[2021-12-11] MEDS: LEVOFLOXACIN INJ 500 MG/100 ML PREMIX IV SCH (07:20)
[2021-12-11] MEDS: methylPREDNISolone SOD SUC 40 MG/1 ML VIAL IV SCH (07:21)
[2021-12-11] MEDS: PANTOPRAZOLE 40 MG TABLET PO SCH (08:45)
[2021-12-11] MEDS: HEPARIN 5,000 UNIT/1 ML VIAL SUBCUT SCH ×2 (08:45→22:08)
[2021-12-11] MEDS: MEGESTROL ES 125 MG/ML 30 ML/BOTTLE PO SCH (08:46)
[2021-12-11] MEDS: POTASSIUM CHLORIDE RIDER 10 MEQ/100 ML PREMIX IV SCH ×4 (12:05→15:55)
[2021-12-11] MEDS ORDERED: POTASSIUM CHLORIDE RIDER 10 MEQ/100 ML PREMIX IV SCH (16:00)
[2021-12-11] MEDS: methylPREDNISolone SOD SUC 40 MG/1 ML VIAL IM SCH (22:04)
[2021-12-12] MEDS: ALBUTEROL/IPRATROPIUM 3 ML NEB RESP TX SCH ×4 (00:40→20:19)
[2021-12-12 05:20] LABS: Basophils % 0.1 % (0.0-0.8); Hematocrit 29.8 VOL% (42.0-52.0); Hemoglobin 9.6 GM/DL (14.0-18.0); Immature Granulocytes % 0.8 %; Immature Granulocytes Absolute 0.07 #; Lymphocytes # 0.5 10*3/uL (1.4-4.0); Lymphocytes % 5.6 % (21.2-54.2); Mean Corpuscular HGB Conc 32.2 GM/DL (32-36); Mean Corpuscular Volume 93.4 FL (87-102); Mean Platelet Volume 9.6 FL (9.6-12.0); Monocytes # 0.2 10*3/uL (0.11-0.8); Monocytes % 2.3 % (1.7-12.7); Neutrophils % 91.2 % (38.7-73.9); Platelet Count 173 T/CUMM (130-400); Red Blood Count 3.19 MC/CUMM (3.8-5.5); Red Cell Distribution Width 14.1 % (9.3-17.3); White Blood Count 8.5 T/CUMM (4-12)
[2021-12-12 05:37] LABS: Alanine Aminotransferase 12 U/L (16-61); Albumin 2.6 G/DL (3.4-5.0); Alkaline Phosphatase 82 U/L (45-117); Aspartate Amino Transferase 20 U/L (0-37); Bilirubin,Total < 0.39 MG/DL (0.20-1.00); Blood Urea Nitrogen 7 MG/DL (7-18); Calcium 9.6 MG/DL (8.5-10.1); Carbon Dioxide 30 MMOL/L (21-32); Chloride 99 MMOL/L (98-107); Glucose 122 MG/DL (74-106); Osmolality,Calculated 262.5 MOS/KG (273-304); Potassium 3.5 MMOL/L (3.5-5.1); Sodium 132 MMOL/L (136-145); Total Protein 6.6 G/DL (6.4-8.2)
[2021-12-12 05:43] LABS: Lymphocytes 8 % (20-55); Microcytosis 1+; Total Cells Counted 100
[2021-12-12 05:44] LABS: Platelet Estimate Adequate
[2021-12-12] MEDS: LEVOFLOXACIN INJ 500 MG/100 ML PREMIX IV SCH (07:09)
[2021-12-12] MEDS: HEPARIN 5,000 UNIT/1 ML VIAL SUBCUT SCH (09:31)
[2021-12-12] MEDS: methylPREDNISolone SOD SUC 40 MG/1 ML VIAL IM SCH (09:37)
[2021-12-12] MEDS: MEGESTROL ES 125 MG/ML 30 ML/BOTTLE PO SCH (09:37)
[2021-12-12] MEDS: PANTOPRAZOLE 40 MG TABLET PO SCH (09:37)
[2021-12-12] MEDS ORDERED: predniSONE 10 MG TABLET PO SCH (10:30)
[2021-12-12 14:18] VITALS: BP 101/58
== END 2021-12-12 19:25 | disposition home health service (06) | DRG 133 ==
LOC: N.ED 19:46 → N.EDINP 22:28 → SUATTDRO 22:28 → N.TELEN 12-09 00:22
PROVIDERS: ADMIT Family Medicine; ATTEND Internal Medicine